=== PATIENT | female | born 1990 | race African-American/Black ===

== ENCOUNTER 2016-08-02 17:13 | Emergency (ER) | payer BC ==
[~2016-08-02] VITALS: Ht 172.7 cm; Wt 61.7 kg
[2016-08-02] MEDS ORDERED: ONDANSETRON PF 4 MG/2 ML VIAL. IV ONE (18:15)
[2016-08-02] MEDS ORDERED: IV NORMAL SALINE 1000ML BAG 1,000 ML IV ONE (18:15)
[2016-08-02 18:16] LABS: BILIRUBIN,URINE NEGATIVE (NEG); GLUCOSE,URINE NEGATIVE (NEG); NITRITE,URINE NEGATIVE (NEG); PROTEIN,URINE NEGATIVE (NEG-TRACE); UROBILINOGEN,URINE 0.2 mg/dL (0.2 mg/dL)
[2016-08-02] MEDS: fentaNYL PF VIAL 100 MCG/2 ML VIAL IV PRN ×2 (18:26→19:10)
[2016-08-02 18:29] LABS: BASO % 1 % (0-3); EOS % 1 % (0-3); HEMATOCRIT 40.4 % (36.0-47.0); HEMOGLOBIN 13.4 g/dL (12.0-15.5); LYMPH # 2.1 x10^3/uL (1.0-4.8); LYMPH % 25 % (24-48); MEAN CORPUSCULAR HEMOGLOBIN 30 pg (25-35); MEAN CORPUSCULAR HGB CONC 33 g/dL (31-37); MEAN CORPUSCULAR VOLUME 90 fL (79-100); MONO % 7 % (0-9); NEUT % 67 % (31-73); PLATELET COUNT 135 x10^3/uL (140-400); RED CELL DISTRIBUTION WIDTH 13.2 % (11.5-14.5); WHITE BLOOD COUNT 8.2 x10^3/uL (4.0-11.0)
[2016-08-02] MEDS ORDERED: IOHEXOL 300 MG/ML 75 ML VIAL IV ONE (18:30)
[2016-08-02] MEDS ORDERED: CONTRAST GIVEN MC PRN (18:30)
[2016-08-02 18:31] LABS: BACTERIA,URINE 0 /HPF (0-FEW); RBC,URINE 0 /HPF (0-2); SQUAMOUS EPITHELIAL CELL,UR MOD /LPF; WBC,URINE 0 /HPF (0-4)
[2016-08-02 18:40] LABS: CALCIUM 9.2 mg/dL (8.5-10.1); CREATININE 0.8 mg/dL (0.6-1.0); GFR 103.3; POTASSIUM 3.4 mmol/L (3.5-5.1)
[2016-08-02 18:46] LABS: ALBUMIN/GLOBULIN RATIO 1.1 (1.0-1.7); TOTAL BILIRUBIN 0.6 mg/dL (0.2-1.0); TOTAL PROTEIN 7.6 g/dL (6.4-8.2)
--- NOTE | 2016-08-02 18:54 | PHYS DOC ---
Past Medical History Past Medical History: Asthma, Other Additional Past Medical Histor: PREECLAMPSIA, ACNE, BACTERIAL VAGINOSIS, RUPTURED OVARIAN CYST Past Surgical History: , Tubal ligation Alcohol Use: Occasionally Drug Use: Marijuana Adult General Chief Complaint Chief Complaint: PELVIC PAIN HPI HPI Patient is a 26 year old female who presents with left pelvic pain for the past 2 days, constant with intermittent fluctuations of intense pain, now radiating to left back. Vomited x2 yesterday, nbnb; and has nausea today. Notes slight constipation, but denies dark or bloody stools. Also notes some vaginal discharge with foul smelling odor that is exactly like prior episodes of bacterial vaginosis. She has no concerns for sexually-transmitted infections at this time. She denies dysuria, hematuria, diarrhea, fever or chills, chest pain, cough, trauma, rash Review of Systems Review of Systems Constitutional: Denies fever or chills [] Eyes: Denies change in visual acuity, redness, or eye pain [] HENT: Denies nasal congestion or sore throat [] Respiratory: Denies cough or shortness of breath [] Cardiovascular: No additional information not addressed in HPI [] GI: Denies bloody stools or diarrhea [] : Denies dysuria or hematuria [] Musculoskeletal: Denies joint pain [] Integument: Denies rash or skin lesions [] Neurologic: Denies headache, focal weakness or sensory changes [] Endocrine: Denies polyuria or polydipsia [] Current Medications Current Medications Current Medications Medications (Trade) Dose Ordered Sig/Allen Start Time Stop Time Status Last Admin Dose Admin Fentanyl Citrate (Fentanyl 2ml Vial) 50 mcg PRN Q15MIN PRN 08/02/16 18:15 08/02/16 19:52 DC 08/02/16 19:10 50 MCG Info (Do NOT chart on this entry -- for MONITORING) 1 each PRN DAILY PRN 08/02/16 18:30 08/02/16 19:52 DC Iohexol (Omnipaque 300 Mg/ml) 75 ml 1X ONCE 08/02/16 18:30 08/02/16 18:31 DC 08/02/16 18:59 75 ML Ondansetron HCl (Zofran) 4 mg 1X ONCE 08/02/16 18:15 08/02/16 18:16 DC 08/02/16 18:26 4 MG Sodium Chloride 1,000 ml @ 1,000 mls/hr 1X ONCE 08/02/16 18:15 08/02/16 19:14 DC 08/02/16 18:25 1,000 MLS/HR Allergies Allergies Allergies Coded Allergies Type Severity Reaction Last Updated Verified aspirin Allergy Intermediate RASH 08/02/16 Yes Physical Exam Physical Exam Constitutional: Well developed, well nourished, mild distress, non-toxic appearance. [] HENT: Normocephalic, atraumatic, bilateral external ears normal, oropharynx moist, no oral exudates, nose normal. [] Eyes: PERRLA, EOMI. [] Neck: Normal range of motion, supple. [] Cardiovascular: Heart rate regular rhythm [] Lungs & Thorax: Bilateral breath sounds clear to auscultation [] Abdomen: Bowel sounds normal, soft, moderate left lower quadrant tenderness, no guarding or rebound. [] Skin: Warm, dry, no erythema, no rash. [] Back: No tenderness, no CVA tenderness. [] Extremities: No tenderness, ROM intact, no edema. [] Neurologic: Alert and oriented X 3, normal motor function, normal sensory function, no focal deficits noted. [] Psychologic: Affect normal, judgement normal, mood normal. [] Current Patient Data Vital Signs Vital Signs Date Time Temp Pulse Resp B/P (MAP) Pulse Ox O2 Delivery O2 Flow Rate FiO2 08/02/16 19:53 70 16 125/79 (94) 97 Room Air 08/02/16 17:30 97.9 97.9 Lab Values Laboratory Tests Test 08/02/16 17:32 08/02/16 18:20 Urine Collection Type Unknown Urine Color Yellow Urine Clarity Clear Urine pH 6.0 Urine Specific [place] 1.015 Urine Protein Negative mg/dL (NEG-TRACE) Urine Glucose (UA) Negative mg/dL (NEG) Urine Ketones (Stick) 40 mg/dL (NEG) Urine Blood Negative (NEG) Urine Nitrite Negative (NEG) Urine Bilirubin Negative (NEG) Urine Urobilinogen Dipstick 0.2 mg/dL (0.2 mg/dL) Urine Leukocyte Esterase Negative (NEG) Urine RBC 0 /HPF (0-2) Urine WBC 0 /HPF (0-4) Urine Squamous Epithelial Cells Mod /LPF Urine Bacteria 0 /HPF (0-FEW) Urine Mucus Mod /LPF White Blood Count 8.2 x10^3/uL (4.0-11.0) Red Blood Count 4.50 x10^6/uL (3.50-5.40) Hemoglobin 13.4 g/dL (12.0-15.5) Hematocrit 40.4 % (36.0-47.0) Mean Corpuscular Volume 90 fL (79-100) Mean Corpuscular Hemoglobin 30 pg (25-35) Mean Corpuscular Hemoglobin Concent 33 g/dL (31-37) Red Cell Distribution Width 13.2 % (11.5-14.5) Platelet Count 135 x10^3/uL (140-400) L Neutrophils (%) (Auto) 67 % (31-73) Lymphocytes (%) (Auto) 25 % (24-48) Monocytes (%) (Auto) 7 % (0-9) Eosinophils (%) (Auto) 1 % (0-3) Basophils (%) (Auto) 1 % (0-3) Neutrophils # (Auto) 5.5 x10^3uL (1.8-7.7) Lymphocytes # (Auto) 2.1 x10^3/uL (1.0-4.8) Monocytes # (Auto) 0.6 x10^3/uL (0.0-1.1) Eosinophils # (Auto) 0.0 x10^3/uL (0.0-0.7) Basophils # (Auto) 0.0 x10^3/uL (0.0-0.2) Sodium Level 144 mmol/L (136-145) Potassium Level 3.4 mmol/L (3.5-5.1) L Chloride Level 105 mmol/L (98-107) Carbon Dioxide Level 27 mmol/L (21-32) Anion Gap 12 (6-14) Blood Urea Nitrogen 8 mg/dL (7-20) Creatinine 0.8 mg/dL (0.6-1.0) Estimated GFR (Cockcroft-Gault) 103.3 BUN/Creatinine Ratio 10 (6-20) Glucose Level 82 mg/dL (70-99) Calcium Level 9.2 mg/dL (8.5-10.1) Total Bilirubin 0.6 mg/dL (0.2-1.0) Aspartate Amino Transferase (AST) 14 U/L (15-37) L Alanine Aminotransferase (ALT) 15 U/L (14-59) Alkaline Phosphatase 56 U/L (46-116) Total Protein 7.6 g/dL (6.4-8.2) Albumin 4.0 g/dL (3.4-5.0) Albumin/Globulin Ratio 1.1 (1.0-1.7) Laboratory Tests 08/02/16 18:20 Laboratory Tests 08/02/16 18:20 Radiology/Procedures Radiology/Procedures Ultrasound pelvis IMPRESSION: 1. No acute sonographic and metallic. 2. Small amount of free pelvic fluid, nonspecific. Electronically signed by: Jet Jackson MD (08/02/2016 7:00 PM) CT abdomen and pelvis with IV contrast IMPRESSION: 1. No acute abnormality of the abdomen or pelvis. No evidence of appendicitis. 2. Trace amount of free pelvic fluid, nonspecific. Electronically signed by: Jet Jackson MD (08/02/2016 7:20 PM) Course & Med Decision Making Course & Med Decision Making Pertinent Labs and Imaging studies reviewed. (See chart for details) Workup is unremarkable. She is feeling better after medications here. Discussed symptomatic care for symptoms. Offered STI testing, but she prefers to follow- up with her resident care technician. Will give prescription for symptoms of BV. Encouraged her to follow-up with her primary care doctor and resident care technician. Return precautions given. She understands and agrees with plan. Lloyd Disclaimer Lloyd Disclaimer This electronic medical record was generated, in whole or in part, using a voice recognition dictation system. Departure Departure Impression: Primary Impression: Left lower quadrant abdominal pain of unknown etiology Additional Impression: Constipation Disposition: 01 HOME, SELF-CARE Condition: STABLE Referrals: UNKNOWN PCP NAME (PCP) Patient Instructions: Abdominal Pain, [id number] Additional Instructions: Take promethazine as needed for nausea. Take Flagyl for possible bacterial vaginosis. Take MiraLAX for constipation. Take Tylenol or ibuprofen as needed for pain. Follow-up with your primary care doctor and resident care technician within one week. Please call for appointment. Return for any concerns. Scripts Metronidazole (FLAGYL) 500 Mg Tablet 1 TAB PO BID, #14 TAB Prov: Fay YA MD 08/02/16 Polyethylene Glycol 3350 (MIRALAX) 119 Gm Powder 1 TBS PO DAILY Y for CONSTIPATION, #255 GM Prov: Fay YA MD 08/02/16 Promethazine Hcl (PROMETHAZINE HCL) 12.5 Mg Tablet 1 TAB PO Q6-8HRS Y for NAUSEA, #10 TAB 0 Refills Prov: Fay YA MD 08/02/16 Problem Qualifiers Additional Impression: Constipation Constipation type: unspecified constipation type Qualified Codes: K59.00 - Constipation, unspecified Fay YA MD Aug 02, 2016 18:54
--- NOTE | 2016-08-02 19:03 | RAD ---
Pelvic ultrasound dated 08/02/2016. No comparison available. CLINICAL INDICATION: Left-sided pelvic pain for 2 days. FINDINGS: Transabdominal pelvic ultrasound was performed. Uterus measures 9.7 x 7.3 x 3.4 cm. No focal uterine mass. Endometrial complex normal in thickness for age measuring 5 mm. Right ovary measures 4.0 x 2.5 x 2.2 cm. Left ovary measures 3.0 x 1.9 x 1.9 cm. Normal color Doppler flow to both ovaries. No apparent adnexal mass. Small amount of free pelvic fluid. IMPRESSION: 1. No acute sonographic and metallic. 2. Small amount of free pelvic fluid, nonspecific. Electronically signed by: Jet Jackson MD (08/02/2016 7:00 PM)
--- NOTE | 2016-08-02 19:23 | RAD ---
CT ABD PELV W/ IV CONTRST ONLY dated 08/02/2016 6:53 PM Indication: Severe left flank pain, pelvic pain started today, history of ruptured ovarian cyst. Left lower quadrant pain. Comparison: Pelvic ultrasound dated same day. Technique: Contiguous axial imaging of the abdomen and pelvis performed after the intravenous administration of 75 cc Omnipaque 300. One or more of the following individualized dose reduction techniques were utilized for this examination: 1. Automated exposure control 2. Adjustment of the mA and/or kV according to patient size 3. Use of iterative reconstruction technique Findings: Limited images of lung bases are clear. Heart size within normal limits. No pleural or pericardial effusion. Liver, spleen, pancreas, adrenal glands, gallbladder and kidneys are unremarkable. No hydronephrosis. Unopacified GI tract normal in caliber and contour. No focal bowel wall thickening. No inflammatory stranding in the mesentery. The appendix is partially visualized and normal in caliber. No ascites or lymphadenopathy. Abdominal aorta normal in caliber. Images of the pelvis show nondistended urinary bladder. Uterus and adnexa are unremarkable. Trace amount of free pelvic fluid. No pelvic lymphadenopathy. Bone windows show no acute findings. IMPRESSION: 1. No acute abnormality of the abdomen or pelvis. No evidence of appendicitis. 2. Trace amount of free pelvic fluid, nonspecific. Electronically signed by: Jet Jackson MD (08/02/2016 7:20 PM)
[2016-08-02] MEDS ORDERED: PROM12.56 PO (19:42)
[2016-08-02] MEDS ORDERED: METR500T PO (19:42)
[2016-08-02] MEDS ORDERED: POLY119P4 PO (19:42)
[2016-08-02 19:53] VITALS: BP 125/79
== END 2016-08-02 19:52 | disposition home or self-care (01) ==
LOC: ER 17:13
DX: R10.32 Left lower quadrant pain (principal); K59.00 Constipation, unspecified; R11.2 Nausea with vomiting, unspecified; R10.2 Pelvic and perineal pain; N89.8 Other specified noninflammatory disorders of vagina; J45.909 Unspecified asthma, uncomplicated; M54.89 Other dorsalgia; Z98.890 Other specified postprocedural states; Z98.51 Tubal ligation status; F12.10 Cannabis abuse, uncomplicated; Z88.6 Allergy status to analgesic agent
CPT/HCPCS: 36415; 74177; 76856; 80053; 81001; 81025; 85027; 96361; 96374; 96375; 96376; 99285; J2405; J3010; J7030; Q9967

== ENCOUNTER 2016-10-05 15:32 | Emergency (ER) | payer SELFPAY ==
[~2016-10-05] VITALS: Ht 172.7 cm; Wt 60.3 kg
[~2016-10-05 15:32] MED LIST: METR500T PO; POLY119P4 PO; PROM12.56 PO
--- NOTE | 2016-10-05 16:49 | PHYS DOC ---
Past Medical History Past Medical History: Asthma, Other Additional Past Medical Histor: PREECLAMPSIA, ACNE, BACTERIAL VAGINOSIS, RUPTURED OVARIAN CYST Past Surgical History: , Tubal ligation Alcohol Use: Occasionally Drug Use: Marijuana Adult General Chief Complaint Chief Complaint: ABDOMINAL PAIN HPI HPI Patient is a 26 year old [female] who presents with [2 days of progressive left lower abd/pelvic pain; no n/v/d/f. some vag discharge/spotting. also, intermittent CP left sided and left shoulder pain. home preg test was indeterminant.hx BTL. ] Review of Systems Review of Systems Constitutional: Denies fever or chills [] Eyes: Denies change in visual acuity, redness, or eye pain [] HENT: Denies nasal congestion or sore throat [] Respiratory: Denies cough or shortness of breath [] Cardiovascular: No additional information not addressed in HPI [] GI: Denies abdominal pain, nausea, vomiting, bloody stools or diarrhea [] : Denies dysuria or hematuria [] Musculoskeletal: Denies back pain or joint pain [] Integument: Denies rash or skin lesions [] Neurologic: Denies headache, focal weakness or sensory changes [] Endocrine: Denies polyuria or polydipsia [ neg except as mentioned in HPI] Current Medications Current Medications Current Medications Medications (Trade) Dose Ordered Sig/Allen Start Time Stop Time Status Last Admin Dose Admin Hydromorphone HCl (Dilaudid) 0.5 mg 1X ONCE 10/05/16 17:00 10/05/16 17:01 DC 10/05/16 16:58 0.5 MG Ondansetron HCl (Zofran) 4 mg 1X ONCE 10/05/16 17:00 10/05/16 17:01 DC 10/05/16 16:57 4 MG Sodium Chloride 1,000 ml @ 1,000 mls/hr Q1H 10/05/16 17:00 10/05/16 17:59 DC 10/05/16 16:59 1,000 MLS/HR Allergies Allergies Allergies Coded Allergies Type Severity Reaction Last Updated Verified aspirin Allergy Intermediate RASH 08/02/16 Yes Physical Exam Physical Exam Constitutional: Well developed, well nourished, no acute distress, non-toxic appearance. [] HENT: Normocephalic, atraumatic, bilateral external ears normal, oropharynx moist, no oral exudates, nose normal. [] Eyes: PERRLA, EOMI, conjunctiva normal, no discharge. [] Neck: Normal range of motion, no tenderness, supple, no stridor. [] Cardiovascular:Heart rate regular rhythm, no murmur [] Lungs & Thorax: Bilateral breath sounds clear to auscultation [] Abdomen: Bowel sounds normal, soft, mild left adenexal tenderness, no masses, no pulsatile masses. [] Skin: Warm, dry, no erythema, no rash. [] Back: No tenderness, no CVA tenderness. [] Extremities: No tenderness, no cyanosis, no clubbing, ROM intact, no edema. [] Neurologic: Alert and oriented X 3, normal motor function, normal sensory function, no focal deficits noted. [] Psychologic: Affect normal, judgement normal, mood normal. [] Current Patient Data Vital Signs Vital Signs Date Time Temp Pulse Resp B/P (MAP) Pulse Ox O2 Delivery O2 Flow Rate FiO2 10/05/16 19:00 52 15 110/63 (79) 99 Room Air 10/05/16 16:01 98.4 98.4 Lab Values Laboratory Tests Test 10/05/16 15:21 10/05/16 16:00 10/05/16 16:12 POC Urine HCG, Qualitative Hcg negative (Negative) Urine Collection Type Unknown Urine Color Yellow Urine Clarity Clear Urine pH 7.0 Urine Specific [place] 1.010 Urine Protein Negative mg/dL (NEG-TRACE) Urine Glucose (UA) Negative mg/dL (NEG) Urine Ketones (Stick) Negative mg/dL (NEG) Urine Blood Negative (NEG) Urine Nitrite Negative (NEG) Urine Bilirubin Negative (NEG) Urine Urobilinogen Dipstick 0.2 mg/dL (0.2 mg/dL) Urine Leukocyte Esterase Negative (NEG) Urine RBC 0 /HPF (0-2) Urine WBC 0 /HPF (0-4) Urine Squamous Epithelial Cells Few /LPF Urine Bacteria 0 /HPF (0-FEW) White Blood Count 7.0 x10^3/uL (4.0-11.0) Red Blood Count 4.64 x10^6/uL (3.50-5.40) Hemoglobin 13.8 g/dL (12.0-15.5) Hematocrit 41.6 % (36.0-47.0) Mean Corpuscular Volume 90 fL (79-100) Mean Corpuscular Hemoglobin 30 pg (25-35) Mean Corpuscular Hemoglobin Concent 33 g/dL (31-37) Red Cell Distribution Width 13.1 % (11.5-14.5) Platelet Count 163 x10^3/uL (140-400) Neutrophils (%) (Auto) 64 % (31-73) Lymphocytes (%) (Auto) 29 % (24-48) Monocytes (%) (Auto) 6 % (0-9) Eosinophils (%) (Auto) 1 % (0-3) Basophils (%) (Auto) 1 % (0-3) Neutrophils # (Auto) 4.5 x10^3uL (1.8-7.7) Lymphocytes # (Auto) 2.0 x10^3/uL (1.0-4.8) Monocytes # (Auto) 0.4 x10^3/uL (0.0-1.1) Eosinophils # (Auto) 0.1 x10^3/uL (0.0-0.7) Basophils # (Auto) 0.0 x10^3/uL (0.0-0.2) D-Dimer ([place]) < 0.27 ug/mlFEU Sodium Level 143 mmol/L (136-145) Potassium Level 3.4 mmol/L (3.5-5.1) L Chloride Level 104 mmol/L (98-107) Carbon Dioxide Level 30 mmol/L (21-32) Anion Gap 9 (6-14) Blood Urea Nitrogen 15 mg/dL (7-20) Creatinine 0.9 mg/dL (0.6-1.0) Estimated GFR (Cockcroft-Gault) 90.2 BUN/Creatinine Ratio 17 (6-20) Glucose Level 81 mg/dL (70-99) Calcium Level 9.4 mg/dL (8.5-10.1) Total Bilirubin 0.3 mg/dL (0.2-1.0) Aspartate Amino Transferase (AST) 17 U/L (15-37) Alanine Aminotransferase (ALT) 16 U/L (14-59) Alkaline Phosphatase 70 U/L (46-116) Total Protein 8.4 g/dL (6.4-8.2) H Albumin 4.2 g/dL (3.4-5.0) Albumin/Globulin Ratio 1.0 (1.0-1.7) Lipase 106 U/L (73-393) Laboratory Tests 10/05/16 16:12 Laboratory Tests 10/05/16 16:12 Microbiology 10/05/16 Wet Prep - Final, Complete EKG EKG [] Radiology/Procedures Radiology/Procedures [] Course & Med Decision Making Course & Med Decision Making Pertinent Labs and Imaging studies reviewed. (See chart for details) Regarding her complaints of chest pain d-dimer negative chest x-ray EKG unremarkable denies suspect serious pathology. Patient was not urine was clean with unremarkable labs. Patient reports a foul odor vaginally consistent with prior bacterial vaginosis. We will treat with Flagyl. GC Chlamydia wet prep were sent and results are pending we will contact patient if positive for STDs. [] Dragon Disclaimer Dragon Disclaimer This electronic medical record was generated, in whole or in part, using a voice recognition dictation system. Departure Departure Referrals: NO PCP (PCP) Scripts Metronidazole (FLAGYL) 500 Mg Tablet 1 TAB PO BID, #14 TAB Prov: MEGHAN SALCIDO MD 10/05/16 MEGHAN SALCIDO MD Oct 05, 2016 16:49
--- NOTE | 2016-10-05 16:50 | EKG ---
[facility] [address] [place] [address] Test Date: 2016-10-05 Test Time: 16:13:54 Pat Name: MAXIMO TRAMMELL Department: Room: Gender: F [employer]: : 1990 Requested By: MEGHAN SALCIDO Order Number: [id number] Reading MD: Srikanth Lawson Measurements Intervals [place] Rate: 61 P: 31 HI: 164 QRS: 51 QRSD: 74 T: 31 QT: 392 QTc: 396 Interpretive Statements SINUS RHYTHM Electronically Signed On 10-10-2016 7:12:53 CDT by Srikanth Lawson
[2016-10-05 16:52] LABS: BASO % 1 % (0-3); EOS % 1 % (0-3); HEMATOCRIT 41.6 % (36.0-47.0); HEMOGLOBIN 13.8 g/dL (12.0-15.5); LYMPH % 29 % (24-48); MEAN CORPUSCULAR HEMOGLOBIN 30 pg (25-35); MEAN CORPUSCULAR HGB CONC 33 g/dL (31-37); MEAN CORPUSCULAR VOLUME 90 fL (79-100); MONO % 6 % (0-9); NEUT % 64 % (31-73); PLATELET COUNT 163 x10^3/uL (140-400); RED BLOOD COUNT 4.64 x10^6/uL (3.50-5.40); RED CELL DISTRIBUTION WIDTH 13.1 % (11.5-14.5)
[2016-10-05 16:54] LABS: BILIRUBIN,URINE NEGATIVE (NEG); GLUCOSE,URINE NEGATIVE (NEG); NITRITE,URINE NEGATIVE (NEG); PROTEIN,URINE NEGATIVE (NEG-TRACE); UROBILINOGEN,URINE 0.2 mg/dL (0.2 mg/dL)
[2016-10-05 16:58] LABS: BACTERIA,URINE 0 /HPF (0-FEW); RBC,URINE 0 /HPF (0-2); SQUAMOUS EPITHELIAL CELL,UR FEW /LPF; WBC,URINE 0 /HPF (0-4)
[2016-10-05] MEDS ORDERED: IV NORMAL SALINE 1000ML BAG 1,000 ML IV SCH (17:00)
[2016-10-05] MEDS ORDERED: ONDANSETRON PF 4 MG/2 ML VIAL. IV ONE (17:00)
[2016-10-05] MEDS ORDERED: HYDROmorphone 2 MG/ML VIAL IV ONE (17:00)
[2016-10-05 17:02] LABS: CALCIUM 9.4 mg/dL (8.5-10.1); CREATININE 0.9 mg/dL (0.6-1.0); GFR 90.2; POTASSIUM 3.4 mmol/L (3.5-5.1)
[2016-10-05 17:08] LABS: ALBUMIN 4.2 g/dL (3.4-5.0); TOTAL BILIRUBIN 0.3 mg/dL (0.2-1.0); TOTAL PROTEIN 8.4 g/dL (6.4-8.2)
--- NOTE | 2016-10-05 17:57 | RAD ---
Pelvic ultrasound History: Left adnexal pain. Comparison: None. Technique: Transabdominal imaging of the pelvis was performed. Findings: The uterus measures 9.8 cm in length and is unremarkable. The endometrium measures 9 mm. Right ovary measures 3.2 x 2.2 x 2.1 cm and is unremarkable. The left ovary measures 4.1 x 2.5 x 3.2 cm and is unremarkable. No adnexal masses are identified. Small amount of physiologic free fluid is present in the pelvis. Both ovaries demonstrate normal vascular flow upon Doppler interrogation and are without evidence of torsion. Impression: 1. Unremarkable pelvic ultrasound. Electronically signed by: Jet Murphy MD (10/05/2016 5:54 PM) [facility]
[2016-10-05 19:00] VITALS: BP 110/63
[2016-10-05] MEDS ORDERED: METR500T PO (19:10)
--- NOTE | 2016-10-06 07:06 | RAD ---
Chest x-ray Indication: Left-sided chest pain for one day. Technique: PA and lateral views of the chest Comparison: None Findings: Heart is normal in size. Lungs are clear. No pneumothorax or pleural effusion. Visualized bony thorax within normal limits. Impression: No acute cardiopulmonary process.
== END 2016-10-05 19:23 | disposition home or self-care (01) ==
LOC: ER 15:32
DX: N76.0 Acute vaginitis (principal); B96.89 Other specified bacterial agents as the cause of diseases classified elsewhere; J45.909 Unspecified asthma, uncomplicated; Z98.51 Tubal ligation status; F12.10 Cannabis abuse, uncomplicated
CPT/HCPCS: 36415; 71020; 76856; 80053; 81001; 81025; 83690; 85025; 85379; 87491; 87591; 93005; 96361; 96374; 96375; 99285; J1170; J2405; J7030; Q0111

== ENCOUNTER 2018-03-21 12:44 | Emergency (ER) | payer SELFPAY ==
[~2018-03-21] VITALS: Ht 172.7 cm; Wt 64.4 kg
[2018-03-21 13:14] VITALS: BP 125/64
[2018-03-21 13:15] LABS: BILIRUBIN,URINE NEGATIVE (NEG); CLARITY,URINE CLEAR; COLOR,URINE YELLOW; NITRITE,URINE NEGATIVE (NEG); PROTEIN,URINE NEGATIVE (NEG-TRACE); UROBILINOGEN,URINE 0.2 mg/dL (0.2 mg/dL)
[2018-03-21 13:21] LABS: SQUAMOUS EPITHELIAL CELL,UR MOD /LPF
[2018-03-21 13:22] LABS: BACTERIA,URINE 0 /HPF (0-FEW); RBC,URINE OCC /HPF (0-2)
--- NOTE | 2018-03-21 13:22 | PHYS DOC ---
Past Medical History Past Medical History: Asthma, Other Additional Past Medical Histor: PREECLAMPSIA, ACNE, BACTERIAL VAGINOSIS, RUPTURED OVARIAN CYST Past Surgical History: , Tubal ligation Alcohol Use: Occasionally Drug Use: Marijuana Adult General Chief Complaint Chief Complaint: ABDOMINAL PAIN HPI HPI Patient is a 27 year old female who presents to the ER with complaints of LLQ abdominal pain and irregular vaginal discharge for the last 2 days. She reports that she has a hx of bacterial vaginosis and states that her symptoms are similar to sx she experiences with BV. Pt states she has taken 5 positive home tests and reports concern of a tubal . Pt states she had BTL 3 years ago. Her LMP was on 02/23/17 and was shorter in duration and heavier in flow than her normal cycles. She describes the pain in her LLQ as cramping and rates it a 6/10, nothing alleviates or exacerbates the pain. Review of Systems Review of Systems Constitutional: Denies fever or chills [] HENT: Denies nasal congestion or sore throat [] Respiratory: Denies cough or shortness of breath [] Cardiovascular: No additional information not addressed in HPI [] GI: Denies nausea, vomiting, bloody stools or diarrhea; see HPI[] : Denies dysuria, increased frequency, or hematuria [] Musculoskeletal: Denies back pain Integument: Denies rash or skin lesions [] Neurologic: Denies headache, focal weakness or sensory changes [] Current Medications Current Medications Current Medications Medications (Trade) Dose Ordered Sig/Allen Start Time Stop Time Status Last Admin Dose Admin Morphine Sulfate (Morphine Sulfate) 4 mg 1X ONCE 03/21/18 14:00 03/21/18 14:01 DC 03/21/18 14:05 4 MG Ondansetron HCl (Zofran) 4 mg 1X ONCE 03/21/18 14:00 03/21/18 14:01 DC 03/21/18 14:05 4 MG Sodium Chloride 1,000 ml @ 1,000 mls/hr 1X ONCE 03/21/18 14:00 03/21/18 14:59 DC 03/21/18 14:05 1,000 MLS/HR Allergies Allergies Allergies Coded Allergies Type Severity Reaction Last Updated Verified aspirin Allergy Intermediate RASH 08/02/16 Yes walnut Allergy Unknown 03/21/18 Yes Physical Exam Physical Exam Constitutional: Well developed, well nourished, no acute distress, non-toxic appearance. [] HENT: Normocephalic, atraumatic, bilateral external ears normal, oropharynx moist, nose normal. [] Eyes: PERRLA, EOMI, conjunctiva normal, no discharge. [] Neck: Normal range of motion, no stridor. [] Pelvic Exam: Tester Operator Helper present Nicole ERT Abdomen: Nontender External Genitalia: Normal Skin Speculum: Normal vaginal mucosa, small amount of brown discharge in vaginal vault, no clots, OS closed, non-friable cervix Bimanual: No adnexal masses, L adnexal tenderness, No CMT Skin: Warm, dry, no erythema, no rash. [] Extremities: No cyanosis, ROM intact, no edema. [] Neurologic: Alert and oriented X 3, normal motor function, normal sensory function, no focal deficits noted. [] Psychologic: Affect normal, judgement normal, mood normal. [] Current Patient Data Vital Signs Vital Signs Date Time Temp Pulse Resp B/P (MAP) Pulse Ox O2 Delivery O2 Flow Rate FiO2 03/21/18 14:05 18 03/21/18 13:14 98.2 86 125/64 (84) 98 Room Air 98.2 Lab Values Laboratory Tests Test 03/21/18 12:55 03/21/18 13:01 03/21/18 13:23 Urine Collection Type Unknown Urine Color Yellow Urine Clarity Clear Urine pH 6.0 Urine Specific [place] 1.025 Urine Protein Negative mg/dL (NEG-TRACE) Urine Glucose (UA) Negative mg/dL (NEG) Urine Ketones (Stick) Negative mg/dL (NEG) Urine Blood Negative (NEG) Urine Nitrite Negative (NEG) Urine Bilirubin Negative (NEG) Urine Urobilinogen Dipstick 0.2 mg/dL (0.2 mg/dL) Urine Leukocyte Esterase Small (NEG) Urine RBC Occ /HPF (0-2) Urine WBC 11-20 /HPF (0-4) Urine Squamous Epithelial Cells Mod /LPF Urine Bacteria 0 /HPF (0-FEW) Urine Mucus Marked /LPF POC Urine HCG, Qualitative Hcg positive (Negative) White Blood Count 6.5 x10^3/uL (4.0-11.0) Red Blood Count 4.30 x10^6/uL (3.50-5.40) Hemoglobin 12.7 g/dL (12.0-15.5) Hematocrit 38.8 % (36.0-47.0) Mean Corpuscular Volume 90 fL (79-100) Mean Corpuscular Hemoglobin 30 pg (25-35) Mean Corpuscular Hemoglobin Concent 33 g/dL (31-37) Red Cell Distribution Width 13.2 % (11.5-14.5) Platelet Count 137 x10^3/uL (140-400) L Neutrophils (%) (Auto) 71 % (31-73) Lymphocytes (%) (Auto) 22 % (24-48) L Monocytes (%) (Auto) 6 % (0-9) Eosinophils (%) (Auto) 1 % (0-3) Basophils (%) (Auto) 1 % (0-3) Neutrophils # (Auto) 4.6 x10^3uL (1.8-7.7) Lymphocytes # (Auto) 1.4 x10^3/uL (1.0-4.8) Monocytes # (Auto) 0.4 x10^3/uL (0.0-1.1) Eosinophils # (Auto) 0.0 x10^3/uL (0.0-0.7) Basophils # (Auto) 0.0 x10^3/uL (0.0-0.2) Maternal Serum HCG Beta Subunit 60 mIU/mL (0-5) H Sodium Level 143 mmol/L (136-145) Potassium Level 3.6 mmol/L (3.5-5.1) Chloride Level 105 mmol/L (98-107) Carbon Dioxide Level 27 mmol/L (21-32) Anion Gap 11 (6-14) Blood Urea Nitrogen 14 mg/dL (7-20) Creatinine 0.7 mg/dL (0.6-1.0) Estimated GFR (Cockcroft-Gault) 119.7 Glucose Level 85 mg/dL (70-99) Calcium Level 9.7 mg/dL (8.5-10.1) Laboratory Tests 03/21/18 13:23 Laboratory Tests 03/21/18 13:23 Microbiology 03/21/18 Wet Prep - Final, Complete EKG EKG [] Radiology/Procedures Radiology/Procedures PROCEDURE: PREG 1ST TRIMESTER Examination: Obstetric ultrasound first trimester HISTORY: History of left pelvic pain COMPARISON: None available FINDINGS: The uterus measures 9.5 x 9.1 x 6.1 cm. The endometrium measures 1.3 cm in thickness. The right ovary measures 3.5 x 1.4 x 1.7 cm. The left ovary measures 3.6 x 2.0 x 2.9 cm. Blood flow identified in the right and left ovaries. No intrauterine gestational sac is identified. IMPRESSION: 1. No evidence of intrauterine gestational sac. Differential includes very early ,or failed first trimester or ectopic . An ectopic gestation is not identified. Recommend close interval follow-up examination and follow-up serial quantitative beta-hCG levels.[] Course & Med Decision Making Course & Med Decision Making Pertinent Labs and Imaging studies reviewed. (See chart for details) Dx: abdominal pain in , bacterial vaginosis DDx: threatened miscarriage, tubal , ovarian cyst 1515- Spoke with Dr. Alan and advised of patient's HCG level and US results. Will provide pt with provider's address and phone number and instruct her to call office first thing tomorrow to schedule a follow up appointment tomorrow afternoon. Prescription written for flagyl. Pelvic rest until cleared by OB. Patient verbalized an understanding of home care, medications, follow-up, and return to ED instructions and was in agreement with the plan of care. [] Dragon Disclaimer Dragon Disclaimer This electronic medical record was generated, in whole or in part, using a voice recognition dictation system. Departure Departure Impression: Primary Impression: Abdominal pain during in first trimester Additional Impression: Bacterial vaginosis Disposition: HOME, SELF-CARE Condition: STABLE Referrals: CORINE HOYOS MD Patient Instructions: Abdominal Pain During , [id number], Bacterial Vaginosis, [id number] Additional Instructions: Call Dr. Hoyos's office first thing tomorrow morning to schedule a follow up appointment tomorrow afternoon. Fill the prescription and use as directed. Pelvic rest until cleared by OB. Return to the ER if symptoms worsen. Scripts Metronidazole (FLAGYL) 500 Mg Tablet 1 TAB PO BID, #14 TAB 0 Refills Prov: ASIM GAGE APRN 03/21/18 Problem Qualifiers ASIM GAGE APRN Mar 21, 2018 13:22
[2018-03-21 13:38] LABS: BASO % 1 % (0-3); EOS % 1 % (0-3); HEMATOCRIT 38.8 % (36.0-47.0); HEMOGLOBIN 12.7 g/dL (12.0-15.5); LYMPH # 1.4 x10^3/uL (1.0-4.8); LYMPH % 22 % (24-48); MEAN CORPUSCULAR HEMOGLOBIN 30 pg (25-35); MEAN CORPUSCULAR HGB CONC 33 g/dL (31-37); MEAN CORPUSCULAR VOLUME 90 fL (79-100); MONO # 0.4 x10^3/uL (0.0-1.1); MONO % 6 % (0-9); NEUT # 4.6 x10^3uL (1.8-7.7); NEUT % 71 % (31-73); PLATELET COUNT 137 x10^3/uL (140-400); RED CELL DISTRIBUTION WIDTH 13.2 % (11.5-14.5); WHITE BLOOD COUNT 6.5 x10^3/uL (4.0-11.0)
[2018-03-21 13:49] LABS: CALCIUM 9.7 mg/dL (8.5-10.1); CREATININE 0.7 mg/dL (0.6-1.0); GFR 119.7; POTASSIUM 3.6 mmol/L (3.5-5.1)
[2018-03-21] MEDS: MORPHINE SULFATE 4 MG/ML VIAL. IV ONE (14:05)
[2018-03-21] MEDS: ONDANSETRON PF 4 MG/2 ML VIAL. IV ONE (14:05)
[2018-03-21] MEDS: IV NORMAL SALINE 1000ML BAG 1,000 ML IV ONE (14:05)
--- NOTE | 2018-03-21 14:55 | RAD ---
Examination: Obstetric ultrasound first trimester HISTORY: History of left pelvic pain COMPARISON: None available FINDINGS: The uterus measures 9.5 x 9.1 x 6.1 cm. The endometrium measures 1.3 cm in thickness. The right ovary measures 3.5 x 1.4 x 1.7 cm. The left ovary measures 3.6 x 2.0 x 2.9 cm. Blood flow identified in the right and left ovaries. No intrauterine gestational sac is identified. IMPRESSION: 1. No evidence of intrauterine gestational sac. Differential includes very early ,or failed first trimester or ectopic . An ectopic gestation is not identified. Recommend close interval follow-up examination and follow-up serial quantitative beta-hCG levels. Electronically signed by: Robert Matamoros MD (03/21/2018 2:50 PM) [id number]
[2018-03-21] MEDS ORDERED: METR500T PO (15:25)
[2018-03-22 12:26] LABS: GC PROBE Negative (Negative)
[2018-03-22] MEDS ORDERED: HYDR-3164 PO (16:49)
== END 2018-03-21 16:27 | disposition home or self-care (01) ==
LOC: ER 12:44
DX: O23.591 Infection of other part of genital tract in pregnancy, first trimester (principal); B96.89 Other specified bacterial agents as the cause of diseases classified elsewhere; R10.32 Left lower quadrant pain; O99.511 Diseases of the respiratory system complicating pregnancy, first trimester; Z98.890 Other specified postprocedural states; Z98.51 Tubal ligation status; Z88.6 Allergy status to analgesic agent; Z91.018 Allergy to other foods; Z3A.01 Less than 8 weeks gestation of pregnancy
CPT/HCPCS: 36415; 76801; 80048; 81001; 81025; 84702; 85025; 86900; 86901; 87086; 87491; 87591; 96374; 96375; 99284; J2270; J2405; J7030; Q0111

== ENCOUNTER 2018-03-22 14:41 | Emergency (ER) | payer SELFPAY ==
[~2018-03-22] VITALS: Ht 172.7 cm; Wt 64.4 kg
[2018-03-22] MEDS ORDERED: HYDR-3164 PO (16:49)
--- NOTE | 2018-03-22 16:50 | PHYS DOC ---
Past Medical History Past Medical History: Asthma, Other Additional Past Medical Histor: PREECLAMPSIA, ACNE, BACTERIAL VAGINOSIS, RUPTURED OVARIAN CYST Past Surgical History: , Tubal ligation Alcohol Use: Occasionally Drug Use: Marijuana Adult General Chief Complaint Chief Complaint: ABDOMINAL PAIN IN [facility] Patient is a 27-year-old female who presents with complaint of worsening pain in her left adnexal region. Patient was seen here yesterday for the same complaint and was found to have positive test. Patient had tubal ligation previously and there was concern that patient may have ectopic . An ultrasound had been performed yesterday and patient had been instructed to follow-up with Dr. Solomon today. Patient was unable to get through to Dr. Solomon's office so was not able to follow up and had decided to return to the emergency room. She denies any nausea or vomiting. She rates the pain in her left adnexal region is moderate. She describes pain as sharp in nature. She denies any vaginal bleeding. Review of Systems Review of Systems Constitutional: Denies fever or chills [] Respiratory: Denies cough or shortness of breath [] Cardiovascular: No additional information not addressed in HPI [] GI: [place] of lower abdominal pain without vomiting or diarrhea [] : Denies dysuria or hematuria [] Musculoskeletal: Denies back pain or joint pain [] Allergies Allergies Allergies Coded Allergies Type Severity Reaction Last Updated Verified aspirin Allergy Intermediate RASH 08/02/16 Yes walnut Allergy Unknown 03/21/18 Yes Physical Exam Physical Exam Constitutional: Well developed, well nourished, no acute distress, non-toxic appearance. [] Neck: Normal range of motion, no tenderness, supple, no stridor. [] Cardiovascular: Regular rate and rhythm [] Lungs & Thorax: Bilateral breath sounds clear to auscultation [] Abdomen: Bowel sounds normal, soft, with tenderness to palpation left adnexal region. [] Skin: Warm, dry, no erythema, no rash. [] Extremities: No tenderness, no cyanosis, no clubbing, ROM intact, no edema. [] Neurologic: Alert and oriented X 3, no focal deficits noted. [] Current Patient Data Vital Signs Vital Signs Date Time Temp Pulse Resp B/P (MAP) Pulse Ox O2 Delivery O2 Flow Rate FiO2 03/22/18 17:09 81 19 128/72 (90) 98 Room Air 03/22/18 14:55 98.6 98.6 Lab Values Laboratory Tests Test 03/22/18 15:20 Maternal Serum HCG Beta Subunit 62 mIU/mL (0-5) H EKG EKG [] Radiology/Procedures Radiology/Procedures [] Course & Med Decision Making Course & Med Decision Making Pertinent Labs and Imaging studies reviewed. (See chart for details) Patient's case was discussed with Dr. Solomon and she indicates that she would like to have patient follow-up in her office on Sunday, requesting patient show up before 9:30 AM. Plan was discussed with patient and and they are in agreement. Dragon Disclaimer Dragon Disclaimer This electronic medical record was generated, in whole or in part, using a voice recognition dictation system. Departure Departure Impression: Primary Impression: Abdominal pain during in first trimester Disposition: 01 HOME, SELF-CARE Condition: STABLE Referrals: NO PCP (PCP) CORINE HOYOS MD Patient Instructions: Abdominal Pain During Additional Instructions: Follow-up with Dr. Solomon on Sunday. She has indicated to present to her office before 9:30 AM to be seen that day. Scripts Hydrocodone/Apap 5-325 (NORCO 5-325 TABLET) 1 Each Tablet 1 EACH PO PRN Q6HRS PRN for PAIN, #15 as needed for pain Prov: DARYL VELÁSQUEZ Jr. DO 03/22/18 DARYL VELÁSQUEZ Jr. DO Mar 22, 2018 16:50
[2018-03-22 17:09] VITALS: BP 128/72
== END 2018-03-22 17:00 | disposition home or self-care (01) ==
LOC: ER 14:41
DX: O99.89 Other specified diseases and conditions complicating pregnancy, childbirth and the puerperium (principal); R10.32 Left lower quadrant pain; O99.511 Diseases of the respiratory system complicating pregnancy, first trimester; J45.909 Unspecified asthma, uncomplicated; Z88.6 Allergy status to analgesic agent; Z91.018 Allergy to other foods; Z98.890 Other specified postprocedural states; Z98.51 Tubal ligation status; Z3A.01 Less than 8 weeks gestation of pregnancy
CPT/HCPCS: 36415; 84702; 99283

== ENCOUNTER 2018-03-23 20:20 | Inpatient (IN) | payer SELFPAY ==
[~2018-03-23] VITALS: Ht 172.7 cm; Wt 64.4 kg
[~2018-03-23 20:20] MED LIST changes: +HYDR-3164 PO; -PROM12.56 PO; +PROM12.58 PO
[2018-03-23 21:12] LABS: BASO % 1 % (0-3); EOS # 0.1 x10^3/uL (0.0-0.7); EOS % 2 % (0-3); HEMATOCRIT 36.6 % (36.0-47.0); HEMOGLOBIN 12.1 g/dL (12.0-15.5); LYMPH # 2.1 x10^3/uL (1.0-4.8); LYMPH % 37 % (24-48); MEAN CORPUSCULAR HEMOGLOBIN 30 pg (25-35); MEAN CORPUSCULAR HGB CONC 33 g/dL (31-37); MEAN CORPUSCULAR VOLUME 90 fL (79-100); MONO # 0.4 x10^3/uL (0.0-1.1); MONO % 8 % (0-9); NEUT # 3.1 x10^3uL (1.8-7.7); NEUT % 53 % (31-73); PLATELET COUNT 138 x10^3/uL (140-400); RED BLOOD COUNT 4.07 x10^6/uL (3.50-5.40); RED CELL DISTRIBUTION WIDTH 12.9 % (11.5-14.5); WHITE BLOOD COUNT 5.8 x10^3/uL (4.0-11.0)
[2018-03-23 21:23] LABS: CALCIUM 8.9 mg/dL (8.5-10.1); CREATININE 0.7 mg/dL (0.6-1.0); GFR 119.7; POTASSIUM 3.6 mmol/L (3.5-5.1)
[2018-03-23 21:30] LABS: ALBUMIN 3.4 g/dL (3.4-5.0); ALBUMIN/GLOBULIN RATIO 0.9 (1.0-1.7); TOTAL BILIRUBIN 0.4 mg/dL (0.2-1.0)
[2018-03-23] MEDS ORDERED: MORPHINE SULFATE 10 MG/ML VIAL. IV ONE (21:30)
[2018-03-23 21:50] LABS: BILIRUBIN,URINE NEGATIVE (NEG); CLARITY,URINE CLEAR; COLOR,URINE YELLOW; NITRITE,URINE NEGATIVE (NEG); PROTEIN,URINE NEGATIVE (NEG-TRACE); UROBILINOGEN,URINE 0.2 mg/dL (0.2 mg/dL)
[2018-03-23 21:58] LABS: BARBITURATES NEG (NEG); BENZODIAZEPINES NEG (NEG); CANNABINOIDS POS (NEG); COCAINE NEG (NEG); METHADONE NEG (NEG); OPIATES POS (NEG); PHENCYCLIDINE NEG (NEG)
[2018-03-23 22:01] LABS: AMPHETAMINE/METHAMPHETAMINE NEG (NEG)
[2018-03-23 22:14] LABS: WBC,URINE TNTC /HPF (0-4)
[2018-03-23 22:15] LABS: BACTERIA,URINE MODERATE /HPF (0-FEW); SQUAMOUS EPITHELIAL CELL,UR MOD /LPF
--- NOTE | 2018-03-23 23:46 | RAD ---
OB ultrasound less than 14 weeks and transvaginal OB ultrasound HISTORY: Abdominal pain and Sonographic examination of the was performed by transabdominal and endovaginal technique. Multiple static images were obtained. OB ultrasound less than 14 weeks transabdominal: The endometrium measures 7 mm in thickness. The ovaries are not seen by transabdominal technique. OB ultrasound transvaginal: There is nabothian cysts in the cervix. The uterus appears homogeneous. The right ovary appears normal with normal blood flow measures 1.2 x 3.1 x 5.5 centers. Left ovary appears normal with normal blood flow measures 2.0 x 3.0 x 1.8 cm. There is no free fluid. IMPRESSION: No sonographic evidence of . An early or blighted ovum or miscarriage is possible. Recommend correlation with serial quantitative beta-hCG. If the continues a short-term follow-up ultrasound must be performed when the patient is at 6 weeks in order to document an intrauterine and thereby exclude possible ectopic . Electronically signed by: Navarro Phan III, MD (03/23/2018 11:42 PM) [facility]
[2018-03-24] MEDS ORDERED: ONDANSETRON PF 4 MG/2 ML VIAL. IV ONE (01:15)
--- NOTE | 2018-03-24 01:27 | PHYS DOC ---
Past Medical History Past Medical History: Asthma Additional Past Medical Histor: PREECLAMPSIA, ACNE, BACTERIAL VAGINOSIS, RUPTURED OVARIAN CYST Past Surgical History: No Surgical History Alcohol Use: Occasionally Drug Use: None Adult General Chief Complaint Chief Complaint: PELVIC PAIN HPI HPI Patient is a 27 year old female with history of asthma who presents to the ED today complaining of a 7 out of 10 left-sided abdominal pain that has been going on for 3 days. Patient states she was seen in the ED 3 days ago as well as yesterday for the same pain. She states she was informed she could have a tubal . She states her tubes are tied and burned she states she has continued to have the pain despite being discharged on hydrocodone. Patient describes the pain as a bloating sensation to her abdomen. She states the pain radiates into the left ribs. Patient's also complaining of nausea but no vomiting. Denies any vaginal bleeding. Review of Systems Review of Systems Constitutional: Denies fever or chills [] Eyes: Denies change in visual acuity, redness, or eye pain [] HENT: Denies nasal congestion or sore throat [] Respiratory: Denies cough or shortness of breath [] Cardiovascular: No additional information not addressed in HPI [] GI: Reports left-sided abdominal pain with nausea, denies vomiting, bloody stools or diarrhea [] : Denies dysuria or hematuria [] Musculoskeletal: Denies back pain or joint pain [] Integument: Denies rash or skin lesions [] Neurologic: Denies headache, focal weakness or sensory changes [] All other systems were reviewed and found to be within normal limits, except as documented in this note. Current Medications Current Medications Current Medications Medications (Trade) Dose Ordered Sig/[facility] Start Time Stop Time Status Last Admin Dose Admin Morphine Sulfate (Morphine Sulfate) 5 mg 1X ONCE 03/23/18 21:30 03/23/18 21:31 DC 03/23/18 21:38 5 MG Ondansetron HCl (Zofran) 4 mg 1X ONCE 03/24/18 01:15 03/24/18 01:16 DC 03/24/18 01:15 4 MG Allergies Allergies Allergies Coded Allergies Type Severity Reaction Last Updated Verified aspirin Allergy Intermediate RASH 08/02/16 Yes walnut Allergy Unknown 03/21/18 Yes Physical Exam Physical Exam Constitutional: Well developed, well nourished, no acute distress, non-toxic appearance. [] HENT: Normocephalic, atraumatic, bilateral external ears normal, oropharynx moist, no oral exudates, nose normal. [] Eyes: PERRLA, EOMI, conjunctiva normal, no discharge. [] Neck: Normal range of motion, no tenderness, supple, no stridor. [] Cardiovascular:Heart rate regular rhythm, no murmur [] Lungs & Thorax: Bilateral breath sounds clear to auscultation [] Abdomen: Bowel sounds normal, soft, no tenderness, no masses, no pulsatile masses. [] Pelvic exam External pelvic appears normal, cervix is closed, no CMT, no bleeding noted on pelvic exam, left adnexal tenderness on exam. Skin: Warm, dry, no erythema, no rash. [] Back: No tenderness, no CVA tenderness. [] Extremities: No tenderness, no cyanosis, no clubbing, ROM intact, no edema. [] Neurologic: Alert and oriented X 3, normal motor function, normal sensory function, no focal deficits noted. [] Psychologic: Affect normal, judgement normal, mood normal. [] Current Patient Data Vital Signs Vital Signs Date Time Temp Pulse Resp B/P (MAP) Pulse Ox O2 Delivery O2 Flow Rate FiO2 03/23/18 22:39 62 18 97/60 (72) 97 Room Air 03/23/18 20:42 97.7 97.7 Lab Values Laboratory Tests Test 03/23/18 20:50 03/23/18 21:30 White Blood Count 5.8 x10^3/uL (4.0-11.0) Red Blood Count 4.07 x10^6/uL (3.50-5.40) Hemoglobin 12.1 g/dL (12.0-15.5) Hematocrit 36.6 % (36.0-47.0) Mean Corpuscular Volume 90 fL (79-100) Mean Corpuscular Hemoglobin 30 pg (25-35) Mean Corpuscular Hemoglobin Concent 33 g/dL (31-37) Red Cell Distribution Width 12.9 % (11.5-14.5) Platelet Count 138 x10^3/uL (140-400) L Neutrophils (%) (Auto) 53 % (31-73) Lymphocytes (%) (Auto) 37 % (24-48) Monocytes (%) (Auto) 8 % (0-9) Eosinophils (%) (Auto) 2 % (0-3) Basophils (%) (Auto) 1 % (0-3) Neutrophils # (Auto) 3.1 x10^3uL (1.8-7.7) Lymphocytes # (Auto) 2.1 x10^3/uL (1.0-4.8) Monocytes # (Auto) 0.4 x10^3/uL (0.0-1.1) Eosinophils # (Auto) 0.1 x10^3/uL (0.0-0.7) Basophils # (Auto) 0.0 x10^3/uL (0.0-0.2) Maternal Serum HCG Beta Subunit 80 mIU/mL (0-5) H Sodium Level 138 mmol/L (136-145) Potassium Level 3.6 mmol/L (3.5-5.1) Chloride Level 103 mmol/L (98-107) Carbon Dioxide Level 31 mmol/L (21-32) Anion Gap 4 (6-14) L Blood Urea Nitrogen 16 mg/dL (7-20) Creatinine 0.7 mg/dL (0.6-1.0) Estimated GFR (Cockcroft-Gault) 119.7 BUN/Creatinine Ratio 23 (6-20) H Glucose Level 113 mg/dL (70-99) H Calcium Level 8.9 mg/dL (8.5-10.1) Total Bilirubin 0.4 mg/dL (0.2-1.0) Aspartate Amino Transferase (AST) 11 U/L (15-37) L Alanine Aminotransferase (ALT) 14 U/L (14-59) Alkaline Phosphatase 49 U/L (46-116) Total Protein 7.0 g/dL (6.4-8.2) Albumin 3.4 g/dL (3.4-5.0) Albumin/Globulin Ratio 0.9 (1.0-1.7) L Ethyl Alcohol Level < 10 mg/dL (0-10) Urine Collection Type Unknown Urine Color Yellow Urine Clarity Clear Urine pH 6.0 Urine Specific [place] 1.025 Urine Protein Negative mg/dL (NEG-TRACE) Urine Glucose (UA) Negative mg/dL (NEG) Urine Ketones (Stick) Negative mg/dL (NEG) Urine Blood Negative (NEG) Urine Nitrite Negative (NEG) Urine Bilirubin Negative (NEG) Urine Urobilinogen Dipstick 0.2 mg/dL (0.2 mg/dL) Urine Leukocyte Esterase Large (NEG) Urine RBC 6-10 /HPF (0-2) Urine WBC Tntc /HPF (0-4) Urine Squamous Epithelial Cells Mod /LPF Urine Bacteria Moderate /HPF (0-FEW) Urine Mucus Marked /LPF Urine Opiates Screen Pos (NEG) Urine Methadone Screen Neg (NEG) Urine Barbiturates Neg (NEG) Urine Phencyclidine Screen Neg (NEG) Urine Amphetamine/Methamphetamine Neg (NEG) Urine Benzodiazepines Screen Neg (NEG) Urine Cocaine Screen Neg (NEG) Urine Cannabinoids Screen Pos (NEG) Urine Ethyl Alcohol Neg (NEG) Laboratory Tests 03/23/18 20:50 Laboratory Tests 03/23/18 20:50 EKG EKG [] Radiology/Procedures Radiology/Procedures []PROCEDURE: OB <14 WKS W/TV OB ultrasound less than 14 weeks and transvaginal OB ultrasound HISTORY: Abdominal pain and Sonographic examination of the was performed by transabdominal and endovaginal technique. Multiple static images were obtained. OB ultrasound less than 14 weeks transabdominal: The endometrium measures 7 mm in thickness. The ovaries are not seen by transabdominal technique. OB ultrasound transvaginal: There is nabothian cysts in the cervix. The uterus appears homogeneous. The right ovary appears normal with normal blood flow measures 1.2 x 3.1 x 5.5 centers. Left ovary appears normal with normal blood flow measures 2.0 x 3.0 x 1.8 cm. There is no free fluid. IMPRESSION: No sonographic evidence of . An early or blighted ovum or miscarriage is possible. Recommend correlation with serial quantitative beta-hCG. If the continues a short-term follow-up ultrasound must be performed when the patient is at 6 weeks in order to document an intrauterine and thereby exclude possible ectopic . Electronically signed by: Tray Phan III, MD (03/23/2018 11:42 PM) [facility] DICTATED and SIGNED BY: TRAY PHAN III, MD DATE: 03/23/18 4519 Course & Med Decision Making Course & Med Decision Making Pertinent Labs and Imaging studies reviewed. (See chart for details) This is a 27-year-old female patient presenting to the ED today with left-sided abdominal pain that has been going on for 3 days. Also complaining of nausea. Patient was seen in the ED 3 days ago, had a positive urine hCG and beta hCG was 60. She had an ultrasound done which could not find an IUP she was also in the ED yesterday, beta-hCG with 62, no IUP was found on ultrasound. Off note her tubes are tied. Patient is back in the ED today with the same pain but states the pain is worse. Beta hCG is 80. CBC with a normal WBC, hemoglobin and hematocrit are normal. CMP would not acute findings. Urine analysis is noted for UTI. Patient was given pain medicine in the ED. Spoke to Dr. Ko. She requested we discharge patient and have her follow-up in the clinic. Patient was given the information. She is sitting on the bed, she states the pain is severe, she states she feels she is very bloated. She is requesting to be admitted. She was also starting to dry heave. Spoke to Dr. Ko again. Patient was admitted. Dragon Disclaimer Dragon Disclaimer This electronic medical record was generated, in whole or in part, using a voice recognition dictation system. Departure Departure Impression: Primary Impression: Intractable abdominal pain Additional Impression: UTI (urinary tract infection) Disposition: ADMITTED INPATIENT Condition: STABLE Referrals: NO PCP (PCP) Problem Qualifiers Additional Impression: UTI (urinary tract infection) Urinary tract infection type: site unspecified Hematuria presence: without hematuria Qualified Codes: N39.0 - Urinary tract infection, site not specified FLAVIO GREEN APRN Mar 24, 2018 01:26
[2018-03-24] MEDS ORDERED: IV NORMAL SALINE 1000ML BAG 1,000 ML IV ONE (01:30)
[2018-03-24] MEDS ORDERED: MORPHINE SULFATE 4 MG/ML VIAL. IV PRN (01:30)
[2018-03-24] MEDS ORDERED: ONDANSETRON PF 4 MG/2 ML VIAL. IV PRN (01:30)
[2018-03-24] MEDS ORDERED: cefTRIAXone IV Push 1 GM VIAL. IVP ONE (02:00)
[2018-03-24 02:30] VITALS: BP 99/48
[2018-03-24] MEDS: IV DEXTROSE 5%-LACT RINGERS 1,000 ML IV SCH ×3 (03:37→19:49)
--- NOTE | 2018-03-24 04:33 | NUR ---
Received report from Rosibel in ED around 0230'yannick. Patient arrived upstairs around 0245
[2018-03-24] MEDS ORDERED: AMPICILLIN SODIUM 2 GM in IV NORMAL SALINE 100ML 100 ML IV ONE (06:00)
[2018-03-24] MEDS: oxyCODONE/APAP 5/325 1 TAB TABLET PO PRN ×3 (06:14→15:35)
[2018-03-24 06:21] VITALS: BP 122/66
--- NOTE | 2018-03-24 10:30 | NUR ---
Dr Solomon called floor will see pt tomorrow. Cont. Yessica
--- NOTE | 2018-03-24 11:04 | NUR ---
pt up to void and passed 2 cm clot in toilet. States in 7 days late on period. Instructed will cont to monitor
[2018-03-24 13:04] VITALS: BP 118/64
--- NOTE | 2018-03-24 16:12 | PDOC ---
GENERAL General: 27yrs old female one Lmp) C/O Pelvic Pain for 3 days. Started her Period today. UCG is 80 Sonogram shows no Uterine . VITAL SIGNS Vital Signs: Vital Signs Date Time Temp Pulse Resp B/P (MAP) Pulse Ox O2 Delivery O2 Flow Rate FiO2 03/24/18 13:04 98.0 68 18 118/64 (82) 100 Room Air 98.0 I & O I & O Intake and Output 03/24/18 07:01 Intake Total 300 ml Balance 300 ml Intake Oral 300 ml # Voids 1 ALLERGIES Allergies: Allergies Coded Allergies Type Severity Reaction Last Updated Verified aspirin Allergy Intermediate RASH 08/02/16 Yes walnut Allergy Unknown 03/21/18 Yes MEDS Medications: Current Medications Medications (Trade) Dose Ordered Sig/Allen Start Time Stop Time Status Last Admin Dose Admin Ampicillin Sodium 2 gm/Sodium Chloride 100 ml @ 200 mls/hr 1X ONCE 03/24/18 06:00 03/24/18 07:42 DC 03/24/18 06:17 200 MLS/HR Ceftriaxone Sodium (Rocephin) 1 gm ONCE ONCE 03/24/18 02:00 03/24/18 07:42 DC 03/24/18 02:08 1 GM Dextrose/Lactated Ringer's 1,000 ml @ 125 mls/hr Q8H 03/24/18 03:00 03/24/18 10:33 125 MLS/HR Morphine Sulfate (Morphine Sulfate) 4 mg PRN Q2HR PRN 03/24/18 01:30 03/25/18 01:29 Ondansetron HCl (Zofran) 4 mg PRN Q8HRS PRN 03/24/18 01:30 03/25/18 01:29 Oxycodone/ Acetaminophen (Percocet 5/325) 1-2 tablets PRN Q4HRS PRN 03/24/18 03:00 03/24/18 15:35 2 TAB Sodium Chloride 1,000 ml @ 125 mls/hr 1X ONCE 03/24/18 01:30 03/24/18 07:42 DC LAB Lab: Laboratory Tests Test 03/23/18 20:50 03/23/18 21:30 03/24/18 05:00 White Blood Count 5.8 x10^3/uL (4.0-11.0) Red Blood Count 4.07 x10^6/uL (3.50-5.40) Hemoglobin 12.1 g/dL (12.0-15.5) Hematocrit 36.6 % (36.0-47.0) Mean Corpuscular Volume 90 fL (79-100) Mean Corpuscular Hemoglobin 30 pg (25-35) Mean Corpuscular Hemoglobin Concent 33 g/dL (31-37) Red Cell Distribution Width 12.9 % (11.5-14.5) Platelet Count 138 x10^3/uL (140-400) Neutrophils (%) (Auto) 53 % (31-73) Lymphocytes (%) (Auto) 37 % (24-48) Monocytes (%) (Auto) 8 % (0-9) Eosinophils (%) (Auto) 2 % (0-3) Basophils (%) (Auto) 1 % (0-3) Neutrophils # (Auto) 3.1 x10^3uL (1.8-7.7) Lymphocytes # (Auto) 2.1 x10^3/uL (1.0-4.8) Monocytes # (Auto) 0.4 x10^3/uL (0.0-1.1) Eosinophils # (Auto) 0.1 x10^3/uL (0.0-0.7) Basophils # (Auto) 0.0 x10^3/uL (0.0-0.2) Maternal Serum HCG Beta Subunit 80 mIU/mL (0-5) 81 mIU/mL (0-5) Sodium Level 138 mmol/L (136-145) Potassium Level 3.6 mmol/L (3.5-5.1) Chloride Level 103 mmol/L (98-107) Carbon Dioxide Level 31 mmol/L (21-32) Anion Gap 4 (6-14) Blood Urea Nitrogen 16 mg/dL (7-20) Creatinine 0.7 mg/dL (0.6-1.0) Estimated GFR (Cockcroft-Gault) 119.7 BUN/Creatinine Ratio 23 (6-20) Glucose Level 113 mg/dL (70-99) Calcium Level 8.9 mg/dL (8.5-10.1) Total Bilirubin 0.4 mg/dL (0.2-1.0) Aspartate Amino Transf (AST/SGOT) 11 U/L (15-37) Alanine Aminotransferase (ALT/SGPT) 14 U/L (14-59) Alkaline Phosphatase 49 U/L (46-116) Total Protein 7.0 g/dL (6.4-8.2) Albumin 3.4 g/dL (3.4-5.0) Albumin/Globulin Ratio 0.9 (1.0-1.7) Ethyl Alcohol Level < 10 mg/dL (0-10) Urine Collection Type Unknown Urine Color Yellow Urine Clarity Clear Urine pH 6.0 Urine Specific [place] 1.025 Urine Protein Negative mg/dL (NEG-TRACE) Urine Glucose (UA) Negative mg/dL (NEG) Urine Ketones (Stick) Negative mg/dL (NEG) Urine Blood Negative (NEG) Urine Nitrite Negative (NEG) Urine Bilirubin Negative (NEG) Urine Urobilinogen Dipstick 0.2 mg/dL (0.2 mg/dL) Urine Leukocyte Esterase Large (NEG) Urine RBC 6-10 /HPF (0-2) Urine WBC Tntc /HPF (0-4) Urine Squamous Epithelial Cells Mod /LPF Urine Bacteria Moderate /HPF (0-FEW) Urine Mucus Marked /LPF Urine Opiates Screen Pos (NEG) Urine Methadone Screen Neg (NEG) Urine Barbiturates Neg (NEG) Urine Phencyclidine Screen Neg (NEG) Urine Amphetamine/Methamphetamine Neg (NEG) Urine Benzodiazepines Screen Neg (NEG) Urine Cocaine Screen Neg (NEG) Urine Cannabinoids Screen Pos (NEG) Urine Ethyl Alcohol Neg (NEG) ASSESSMENT & PLAN A&P Abdomen soft .No Fever. No Nausea or Vomiting Pelvic Exam shows uterine Bleeding No Clots. Has some Discomfort at LLQ. Will get Rpt UCG and CT scan tomorrow. Pt receiving Antibiotics for UTI. Positive for [place]. CORINE HOYOS MD Mar 24, 2018 16:12
[2018-03-24 18:40] VITALS: BP 98/63
[2018-03-24 19:30] VITALS: BP 106/61
[2018-03-24] MEDS: cefTRIAXone IV Push 1 GM VIAL. IVP SCH (21:00)
--- NOTE | 2018-03-24 22:20 | NUR ---
Patient called me into the room to show me a blood clot that she had passed in the bathroom, the clot appeared to be about the size of small lemon. Pt also stated that her bleeding was heavy as well. Pt reported on the previous shift to me that she started her February period on 02/23/18. Thus would place her anticipated next start date for the March cycle to be 03/23/18. This places her cycle on time.
[2018-03-25] VITALS (10 sets, daily range): BP systolic 107–129; BP diastolic 61–84
[2018-03-25] MEDS: ONDANSETRON PF 4 MG/2 ML VIAL. IV PRN ×3 (02:41→20:32)
[2018-03-25] MEDS: oxyCODONE/APAP 5/325 1 TAB TABLET PO PRN ×3 (02:45→20:34)
[2018-03-25] MEDS: IV DEXTROSE 5%-LACT RINGERS 1,000 ML IV SCH ×3 (03:26→19:00)
[2018-03-25 06:20] LABS: BASO % 0 % (0-3); EOS # 0.1 x10^3/uL (0.0-0.7); EOS % 1 % (0-3); HEMATOCRIT 31.3 % (36.0-47.0); HEMOGLOBIN 10.5 g/dL (12.0-15.5); LYMPH # 1.4 x10^3/uL (1.0-4.8); LYMPH % 27 % (24-48); MEAN CORPUSCULAR HEMOGLOBIN 30 pg (25-35); MEAN CORPUSCULAR HGB CONC 34 g/dL (31-37); MEAN CORPUSCULAR VOLUME 90 fL (79-100); MONO # 0.4 x10^3/uL (0.0-1.1); MONO % 8 % (0-9); NEUT # 3.3 x10^3uL (1.8-7.7); NEUT % 64 % (31-73); PLATELET COUNT 104 x10^3/uL (140-400); RED BLOOD COUNT 3.49 x10^6/uL (3.50-5.40); RED CELL DISTRIBUTION WIDTH 12.8 % (11.5-14.5); WHITE BLOOD COUNT 5.2 x10^3/uL (4.0-11.0)
[2018-03-25 06:41] LABS: ALBUMIN 2.7 g/dL (3.4-5.0); ALBUMIN/GLOBULIN RATIO 0.9 (1.0-1.7); ALK PHOS 39 U/L (46-116); ALT (SGPT) 9 U/L (14-59); ANION GAP 6 (6-14); BLOOD UREA NITROGEN 6 mg/dL (7-20); BUN/CREATININE RATIO 9 (6-20); CALCIUM 8.1 mg/dL (8.5-10.1); CARBON DIOXIDE 29 mmol/L (21-32); CHLORIDE 106 mmol/L (98-107); CREATININE 0.7 mg/dL (0.6-1.0); GFR 119.7; GLUCOSE 101 mg/dL (70-99); POTASSIUM 3.8 mmol/L (3.5-5.1); SODIUM 141 mmol/L (136-145); TOTAL BILIRUBIN 0.4 mg/dL (0.2-1.0); TOTAL PROTEIN 5.6 g/dL (6.4-8.2)
[2018-03-25 06:42] LABS: AST (SGOT) < 5 U/L (15-37)
[2018-03-25] MEDS ORDERED: ONDANSETRON PF 4 MG/2 ML VIAL. ONE (14:28)
[2018-03-25] MEDS ORDERED: DEXAMETHASONE SOD PHOS 20 MG/5 ML VIAL. ONE (14:28)
[2018-03-25] MEDS ORDERED: SEVOFLURANE 61 TO 120 MINUTES. IH ONE ×2 (14:28→15:54)
[2018-03-25] MEDS ORDERED: PROPOFOL 20 ML IV ONE (14:28)
[2018-03-25] MEDS ORDERED: SUCCINYLCHOLINE 200 MG/10 ML VIAL. ONE (14:28)
[2018-03-25] MEDS ORDERED: ROCURONIUM 50 MG/5 ML VIAL. ONE (14:28)
[2018-03-25] MEDS ORDERED: GLYCOPYRROLATE 1 MG/5 ML VIAL. ONE (14:28)
[2018-03-25] MEDS ORDERED: NEOSTIGMINE 10 MG/10 ML VIAL. ONE (14:28)
[2018-03-25] MEDS ORDERED: KETOROLAC 30 MG/ML INJ FOR OR. INJ ONE ×2 (14:28)
[2018-03-25] MEDS ORDERED: fentaNYL PF VIAL 100 MCG/2 ML VIAL ONE (14:28)
[2018-03-25] MEDS ORDERED: LIDOCAINE 2% PF 5 ML VIAL. ONE (14:28)
[2018-03-25] MEDS ORDERED: HYDROmorphone 2 MG/ML VIAL IV PRN (14:30)
[2018-03-25] MEDS ORDERED: LIDOCAINE 1% PF 2 ML VIAL. ID PRN (14:30)
[2018-03-25] MEDS ORDERED: fentaNYL PF VIAL 100 MCG/2 ML VIAL IV PRN (14:30)
[2018-03-25] MEDS ORDERED: ONDANSETRON PF 4 MG/2 ML VIAL. IV PRN (14:30)
--- NOTE | 2018-03-25 14:34 | HP ---
ADMIT DATE: HISTORY OF PRESENT ILLNESS: This patient is a 27-year-old female who is a 4, para 3, previous section. She comes into the Emergency Room because of pelvic pain and also has UCG rating of 60. She was seen in the ER and admitted because of abdominopelvic pain, which is not relieved with just codeine tablets. Her last menstrual period has been 02/24/2018. She has already had a tubal ligation, at the present time complaining of more pain in the left side of the pelvic area. There is also history of marijuana use at this time. PAST SURGICAL HISTORY: As mentioned above, . REVIEW OF SYSTEMS: Essentially negative. PHYSICAL EXAMINATION: VITAL SIGNS: Reveals the vital signs being stable. GENERAL: She does have acute pain in the left side of the pelvic area. ABDOMEN: Feels soft, tenderness on the left side. PELVIC: Shows external genitalia being normal and she does have minimal amount of vaginal bleeding. On bimanual exam, uterus feels normal size. No adnexal mass on the right side, but she does have tenderness in the left adnexal area with a possible mass. EXTREMITIES: No edema of feet. IMPRESSION: Pelvic pain, rule out ectopic . PLAN: Laparotomy, possible partial salpingectomy. The details of the surgery, risks, complications have been explained to the patient and she is willing for the surgery at the present time. CORINE HOYOS MD DR: TASHI/holger JOB#: [id number] / [id number]
--- NOTE | 2018-03-25 14:40 | NUR ---
Pt. to preop holding in bed accompanied by transportation and significant other. Report given to LENNY Contreras.
[2018-03-25] MEDS: IV RINGERS,LACTATED 1000ML 1,000 ML IV SCH ×2 (14:54→17:49)
[2018-03-25] MEDS ORDERED: ceFAZolin SODIUM 1 GM VIAL ONE (15:20)
--- NOTE | 2018-03-25 16:11 | PDOC ---
GENERAL General: Patient scheduled for Laparotomy and Possible Partial Salpingectomy. VITAL SIGNS Vital Signs: Vital Signs Date Time Temp Pulse Resp B/P (MAP) Pulse Ox O2 Delivery O2 Flow Rate FiO2 03/25/18 15:12 98.3 60 20 124/80 100 Room Air 98.3 I & O I & O Intake and Output 03/25/18 07:01 Intake Total 1060 ml Balance 1060 ml Intake Oral 1060 ml Tube Feeding 0 ml # Voids 6 ALLERGIES Allergies: Allergies Coded Allergies Type Severity Reaction Last Updated Verified aspirin Allergy Intermediate RASH 03/25/18 Yes walnut Allergy Unknown 03/25/18 Yes MEDS Medications: Current Medications Medications (Trade) Dose Ordered Sig/Allen Start Time Stop Time Status Last Admin Dose Admin Ampicillin Sodium 2 gm/Sodium Chloride 100 ml @ 200 mls/hr 1X ONCE 03/24/18 06:00 03/24/18 07:42 DC 03/24/18 06:17 200 MLS/HR Cefazolin Sodium (Ancef) 1 gm STK-MED ONCE 03/25/18 15:20 03/25/18 15:22 DC Ceftriaxone Sodium (Rocephin) 1 gm ONCE ONCE 03/24/18 02:00 03/24/18 07:42 DC 03/24/18 02:08 1 GM Dexamethasone Sodium Phosphate (Decadron) 20 mg STK-MED ONCE 03/25/18 14:28 03/25/18 14:31 DC Dextrose/Lactated Ringer's 1,000 ml @ 125 mls/hr Q8H 03/24/18 03:00 03/25/18 11:10 125 MLS/HR Fentanyl Citrate (Fentanyl 2ml Vial) 100 mcg STK-MED ONCE 03/25/18 14:28 03/25/18 14:30 DC Glycopyrrolate (Robinul) 1 mg STK-MED ONCE 03/25/18 14:28 03/25/18 14:30 DC Hydromorphone HCl (Dilaudid) 0.5 mg PRN Q10MIN PRN 03/25/18 14:30 03/25/18 20:00 Ketorolac Tromethamine (Toradol For Or Only) 30 mg STK-MED ONCE 03/25/18 14:28 03/25/18 14:31 DC Lidocaine HCl (Lidocaine Pf 2% Vial) 5 ml STK-MED ONCE 03/25/18 14:28 03/25/18 14:30 DC Lidocaine HCl (Xylocaine-Mpf 1% 2ml Vial) 2 ml 1X PRN PRN 03/25/18 14:30 03/25/18 20:00 Morphine Sulfate (Morphine Sulfate) 1 mg PRN Q10MIN PRN 03/25/18 14:30 03/26/18 14:29 Neostigmine Methylsulfate (Bloxiverz) 10 mg STK-MED ONCE 03/25/18 14:28 03/25/18 14:30 DC Ondansetron HCl (Zofran) 4 mg STK-MED ONCE 03/25/18 14:28 03/25/18 14:31 DC Oxycodone/ Acetaminophen (Percocet 5/325) 1-2 tablets PRN Q4HRS PRN 03/24/18 03:00 03/25/18 09:51 1 TAB Prochlorperazine Edisylate (Compazine) 5 mg PACU PRN PRN 03/25/18 14:30 03/25/18 20:00 Propofol 20 ml @ As Directed STK-MED ONCE 03/25/18 14:28 03/25/18 14:30 DC Ringer's Solution 1,000 ml @ 30 mls/hr Q24H 03/25/18 14:22 03/26/18 02:21 03/25/18 14:54 30 MLS/HR Rocuronium [place] (Zemuron) 50 mg STK-MED ONCE 03/25/18 14:28 03/25/18 14:30 DC Sevoflurane (Ultane) 60 ml STK-MED ONCE 03/25/18 15:54 03/25/18 15:56 DC Sodium Chloride 1,000 ml @ 125 mls/hr 1X ONCE 03/24/18 01:30 03/24/18 07:42 DC Succinylcholine Chloride (Anectine) 200 mg STK-MED ONCE 03/25/18 14:28 03/25/18 14:30 DC LAB Lab: Laboratory Tests Test 03/25/18 05:56 White Blood Count 5.2 x10^3/uL (4.0-11.0) Red Blood Count 3.49 x10^6/uL (3.50-5.40) Hemoglobin 10.5 g/dL (12.0-15.5) Hematocrit 31.3 % (36.0-47.0) Mean Corpuscular Volume 90 fL (79-100) Mean Corpuscular Hemoglobin 30 pg (25-35) Mean Corpuscular Hemoglobin Concent 34 g/dL (31-37) Red Cell Distribution Width 12.8 % (11.5-14.5) Platelet Count 104 x10^3/uL (140-400) Neutrophils (%) (Auto) 64 % (31-73) Lymphocytes (%) (Auto) 27 % (24-48) Monocytes (%) (Auto) 8 % (0-9) Eosinophils (%) (Auto) 1 % (0-3) Basophils (%) (Auto) 0 % (0-3) Neutrophils # (Auto) 3.3 x10^3uL (1.8-7.7) Lymphocytes # (Auto) 1.4 x10^3/uL (1.0-4.8) Monocytes # (Auto) 0.4 x10^3/uL (0.0-1.1) Eosinophils # (Auto) 0.1 x10^3/uL (0.0-0.7) Basophils # (Auto) 0.0 x10^3/uL (0.0-0.2) Maternal Serum HCG Beta Subunit 72 mIU/mL (0-5) Sodium Level 141 mmol/L (136-145) Potassium Level 3.8 mmol/L (3.5-5.1) Chloride Level 106 mmol/L (98-107) Carbon Dioxide Level 29 mmol/L (21-32) Anion Gap 6 (6-14) Blood Urea Nitrogen 6 mg/dL (7-20) Creatinine 0.7 mg/dL (0.6-1.0) Estimated GFR (Cockcroft-Gault) 119.7 BUN/Creatinine Ratio 9 (6-20) Glucose Level 101 mg/dL (70-99) Calcium Level 8.1 mg/dL (8.5-10.1) Total Bilirubin 0.4 mg/dL (0.2-1.0) Aspartate Amino Transf (AST/SGOT) < 5 U/L (15-37) Alanine Aminotransferase (ALT/SGPT) 9 U/L (14-59) Alkaline Phosphatase 39 U/L (46-116) Total Protein 5.6 g/dL (6.4-8.2) Albumin 2.7 g/dL (3.4-5.0) Albumin/Globulin Ratio 0.9 (1.0-1.7) ASSESSMENT & PLAN A&P Under GA Laparotomy Left side Partial Salpingectomy done. EBL 50cc. CORINE HOYOS MD Mar 25, 2018 16:11
[2018-03-25] MEDS: PROCHLORPERAZINE 10 MG/2 ML VIAL. IV PRN ×2 (16:31→16:53)
[2018-03-25] MEDS: fentaNYL PF VIAL 100 MCG/2 ML VIAL IV PRN ×2 (16:32→16:43)
--- NOTE | 2018-03-25 16:44 | OP ---
DATE OF SURGERY: PREOPERATIVE DIAGNOSES: Acute pelvic pain, possible ectopic . POSTOPERATIVE DIAGNOSES: Acute pelvic pain, possible ectopic . OPERATION PERFORMED: Laparotomy, left-sided partial salpingectomy. OPERATIVE PROCEDURE: The patient was taken to the operating room. Under general anesthesia, she was placed in dorsal lithotomy position. Singh catheter introduced in the bladder for continuous bladder drainage. Lower abdomen was prepped and draped in the usual manner and a Pfannenstiel incision was made in the midline and horizontally and abdomen opened in layers. Visualization of pelvic structures revealed a slightly enlarged uterus and the right tube and ovary appears normal and the left side tube was dilated and the left ovary was enlarged. There was no active bleeding inside. The dilated left fallopian tube was excised with Lucille clamps and the mesosalpinx was doubly ligated with 0 chromic catgut sutures and portion of the fallopian tube removed and subjected for pathological examination and after this, there was no active bleeding and the right tube was entirely normal and abdomen closed in layers using continuous 0 chromic catgut sutures for the peritoneum, the muscle, the fascia; 3-0 plain continuous sutures applied for subcutaneous tissue; 3-0 Vicryl subcutaneous sutures were placed. A pressure dressing was given. The patient was sent to the recovery room in good condition. No complications encountered at time of the procedure. ESTIMATED BLOOD LOSS: 50 mL. CORINE HOYOS MD DR: TASHI/holger JOB#: [id number] / [id number]
[2018-03-25] MEDS: MORPHINE SULFATE 4 MG/ML VIAL. IV PRN ×2 (16:54→17:11)
[2018-03-25] MEDS ORDERED: MORPHINE SULFATE 4 MG/ML VIAL. IV ONE (18:15)
[2018-03-25] MEDS ORDERED: DOCUSATE SODIUM 100 MG CAPSULE. PO PRN (19:45)
[2018-03-25] MEDS: cefTRIAXone IV Push 1 GM VIAL. IVP SCH (20:33)
--- NOTE | 2018-03-26 03:06 | NUR ---
Took over care 03/25/18 at 2130. [facility] down, paper charted until 03/26/18 at 0230.
[2018-03-26] MEDS: oxyCODONE/APAP 5/325 1 TAB TABLET PO PRN ×2 (05:01→08:15)
[2018-03-26 05:21] VITALS: BP 110/65
--- NOTE | 2018-03-26 09:43 | PDOC ---
GENERAL General: Abdomen soft. Incision healing ok. VITAL SIGNS Vital Signs: Vital Signs Date Time Temp Pulse Resp B/P (MAP) Pulse Ox O2 Delivery O2 Flow Rate FiO2 03/26/18 08:15 20 Room Air 03/26/18 05:21 97.9 63 110/65 (80) 99 97.9 03/25/18 16:43 10.0 I & O I & O Intake and Output 03/26/18 07:00 Intake Total 1000 ml Output Total 575 ml Balance 425 ml IV Total 1000 ml Tube Feeding 0 ml Output Urine Total 525 ml Estimated Blood Loss 50 ml ALLERGIES Allergies: Allergies Coded Allergies Type Severity Reaction Last Updated Verified aspirin Allergy Intermediate RASH 03/25/18 Yes walnut Allergy Unknown 03/25/18 Yes MEDS Medications: Current Medications Medications (Trade) Dose Ordered Sig/Allen Start Time Stop Time Status Last Admin Dose Admin Ampicillin Sodium 2 gm/Sodium Chloride 100 ml @ 200 mls/hr 1X ONCE 03/24/18 06:00 03/24/18 07:42 DC 03/24/18 06:17 200 MLS/HR Cefazolin Sodium (Ancef) 1 gm STK-MED ONCE 03/25/18 15:20 03/25/18 15:22 DC Ceftriaxone Sodium (Rocephin) 1 gm ONCE ONCE 03/24/18 02:00 03/24/18 07:42 DC 03/24/18 02:08 1 GM Dexamethasone Sodium Phosphate (Decadron) 20 mg STK-MED ONCE 03/25/18 14:28 03/25/18 14:31 DC Dextrose/Lactated Ringer's 1,000 ml @ 125 mls/hr Q8H 03/24/18 03:00 03/25/18 11:10 125 MLS/HR Docusate Sodium (Colace) 100 mg PRN DAILY PRN 03/25/18 19:45 03/26/18 08:15 100 MG Fentanyl Citrate (Fentanyl 2ml Vial) 100 mcg STK-MED ONCE 03/25/18 14:28 03/25/18 14:30 DC Glycopyrrolate (Robinul) 1 mg STK-MED ONCE 03/25/18 14:28 03/25/18 14:30 DC Hydromorphone HCl (Dilaudid) 0.5 mg PRN Q10MIN PRN 03/25/18 14:30 03/25/18 19:43 DC Ketorolac Tromethamine (Toradol For Or Only) 30 mg STK-MED ONCE 03/25/18 14:28 03/25/18 14:31 DC Lidocaine HCl (Lidocaine Pf 2% Vial) 5 ml STK-MED ONCE 03/25/18 14:28 03/25/18 14:30 DC Lidocaine HCl (Xylocaine-Mpf 1% 2ml Vial) 2 ml 1X PRN PRN 03/25/18 14:30 03/25/18 20:00 DC Morphine Sulfate (Morphine Sulfate) 2 mg 1X ONCE 03/25/18 18:15 03/25/18 18:16 DC 03/25/18 18:33 2 MG Neostigmine Methylsulfate (Bloxiverz) 10 mg STK-MED ONCE 03/25/18 14:28 03/25/18 14:30 DC Ondansetron HCl (Zofran) 4 mg STK-MED ONCE 03/25/18 14:28 03/25/18 14:31 DC Oxycodone/ Acetaminophen (Percocet 5/325) 1-2 tablets PRN Q4HRS PRN 03/24/18 03:00 03/26/18 08:15 1 TAB Prochlorperazine Edisylate (Compazine) 5 mg PACU PRN PRN 03/25/18 14:30 03/25/18 19:43 DC 03/25/18 16:53 5 MG Propofol 20 ml @ As Directed STK-MED ONCE 03/25/18 14:28 03/25/18 14:30 DC Ringer's Solution 1,000 ml @ 30 mls/hr Q24H 03/25/18 14:22 03/26/18 02:21 DC 03/25/18 17:49 30 MLS/HR Rocuronium [place] (Zemuron) 50 mg STK-MED ONCE 03/25/18 14:28 03/25/18 14:30 DC Sevoflurane (Ultane) 60 ml STK-MED ONCE 03/25/18 15:54 03/25/18 15:56 DC Sodium Chloride 1,000 ml @ 125 mls/hr 1X ONCE 03/24/18 01:30 03/24/18 07:42 DC Succinylcholine Chloride (Anectine) 200 mg STK-MED ONCE 03/25/18 14:28 03/25/18 14:30 DC ASSESSMENT & PLAN A&P Patient can go home today. Will see her in office in 2 weeks. Explained to patient about surgical findings. CORINE HOYOS MD Mar 26, 2018 09:43
[2018-03-26] MEDS ORDERED: IBUPROFEN 400 MG TABLET. PO PRN (10:00)
[2018-03-26] MEDS ORDERED: MAGNESIUM HYDROXIDE 2,400 MG/30 ML ORAL.SUSP. PO PRN (10:00)
[2018-03-26] MEDS ORDERED: oxyCODONE/APAP 5/325 1 TAB TABLET PO PRN ×2 (10:15)
[2018-03-26 10:26] VITALS: BP 112/73
--- NOTE | 2018-03-26 11:50 | NUR ---
Discharge Discharge instructions given to patient and at this time. No questions or concerns. To follow up in [address] Solomon. Patient left in wheelchair with all belongings.
--- NOTE | 2018-03-28 16:07 | PATHOLOGY ---
[facility] Accession Number: [id number] . 01 Material submitted: . PORTION OF LEFT FALLOPIAN TUBE . 01 Clinical history: . Pelvic pain, possible ectopic . 02 Diagnosis: Segment of fallopian tube, left partial salpingectomy: - Focal endometriosis of fallopian tube. - Mild acute salpingitis. (JPM:walt; 03/28/2018) QMS/03/28/2018 . 02 Comment: There is no evidence of an ectopic tubal . . 02 Electronically signed: . Florentin Colorado MD, Pathologist NPI- [id number] . 01 Gross description: . Received in formalin labeled "DillonIlya powerae, portion of left fallopian tube," is a curved segment of non-fimbriated fallopian tube measuring 2.4 cm in length by 0.5 cm in diameter. The serosal surface is wrinkled and pale mao-ordoñez in appearance. Serial sectioning reveals a pinpoint lumen, as well as a cystic structure measuring 0.3 cm on cut surface that is filled with brown fluid. The cystic structure does not appear to involve the lumen. No further lesions or nodules are identified grossly. The specimen is submitted representatively in cassette A1, to include the entire aforementioned cystic structure. (DAC; 03/27/2018) XDC/XDC . 02 Pathologist provided ICD-10: N80.9, N70.91 . 02 CPT . 731951 Specimen Comment: A courtesy copy of this report has been sent to Specimen Comment: [phone]. Specimen Comment: Report sent to / DR GREEN Specimen Comment: A duplicate report has been generated due to demographic updates. Performed at: [address] [place] [address] [address], [place], [place] [id number] MD Solomon Turner MD Phone: [phone] Performed at: [address] [id number] MD Florentin Colorado MD Phone: [phone]
--- NOTE | 2018-04-18 11:47 | DS ---
DATE OF DISCHARGE: 03/26/2018 SUBJECTIVE: The patient is a 27-year-old female who is a 3, para 3, came into the Emergency Room with pelvic pain. Last menstrual period 02/24/2018 and the pelvic pain was severe on the left side and she was given pain pills, had a CT scan, admitted to the hospital because of possible ectopic as a test was positive, UCG of 72 and later on she did have also a pelvic sonogram and subsequently admitted for surgery. OBJECTIVE: VITAL SIGNS: Stable. HEAD, EYES, EARS, NOSE AND THROAT: Within normal limits. LUNGS: Clear. HEART: Sounds regular sinus rhythm. ABDOMEN: Soft, tenderness in the pelvic area, more so to the left side, also has vaginal bleeding, spotting. HOSPITAL COURSE: She did undergo a laparotomy and partial salpingectomy on the left side and postoperatively she did well. DIAGNOSES: with pelvic pain, early ectopic on the left side fallopian tube, unruptured. OPERATION PERFORMED: Laparotomy, partial salpingectomy. PLAN: She will be followed in the office in 2 weeks for further postoperative care and treatment. CORINE HOYOS MD DR: TASHI/holger JOB#: [id number] / [id number]
== END 2018-03-26 11:57 | disposition home or self-care (01) | DRG 818 ==
LOC: ER 20:20 → 3 NORTH 03-24 01:22
PROVIDERS: ADMIT Obstetrics & Gynecology; ATTEND Obstetrics & Gynecology
PROC: 0UB60ZZ Excision of Left Fallopian Tube, Open Approach (ICD-10-PCS; principal; 2018-03-24)
DX: O00.102 Left tubal pregnancy without intrauterine pregnancy (principal); O23.41 Unspecified infection of urinary tract in pregnancy, first trimester; N83.8 Other noninflammatory disorders of ovary, fallopian tube and broad ligament; R10.2 Pelvic and perineal pain; J45.909 Unspecified asthma, uncomplicated; F12.90 Cannabis use, unspecified, uncomplicated; Z98.51 Tubal ligation status; Z88.8 Allergy status to other drugs, medicaments and biological substances; Z91.010 Allergy to peanuts
CPT/HCPCS: 36415; 76801; 76817; 80053; 80307; 81001; 84702; 85025; 87086; 88305; 96374; 96375; A7015; G0480; J0290; J0330; J0690; J0696; J0780; J1100; J1885; J2001; J2270; J2405; J2704; J2710; J3010; J3490; J7120; 99285-25; A4461; G0378

== ENCOUNTER 2019-04-17 13:22 | Emergency (ER) | payer SELFPAY ==
[~2019-04-17] VITALS: Ht 172.7 cm; Wt 65.0 kg
--- NOTE | 2019-04-17 15:29 | PHYS DOC ---
Past Medical History Past Medical History: Asthma Additional Past Medical Histor: PREECLAMPSIA, ACNE, BACTERIAL VAGINOSIS, RUPTURED OVARIAN CYST (ANGELES HENDRICKS APRN) Past Surgical History: No Surgical History (ANGELES HENDRICKS APRN) Smoking Status: Current Every Day Smoker Alcohol Use: Occasionally Drug Use: None (ANGELES HENDRICKS APRN) Adult General Chief Complaint Chief Complaint: VAGINAL BLEEDING HPI HPI Patient is a 28 year old female who presents with nausea, vomiting, diarrhea, feeling hot and cold, back pain that started on Sunday. The patient states that she thought she had food poisoning but then the diarrhea lessened and she started having abdominal cramping and bloating on Sunday and has not had a bowel movement since that time. The patient states that she feels 3 months . The patient states that she is also been feeling shortness of breath and is having vaginal bleeding since Sunday. The patient had an ectopic on March 25 even though she has had a tubal ligation. The patient is had 2- tests over the last several days at home. She has recently started back on control. (ANGELES HENDRICKS APRN) Review of Systems Review of Systems Constitutional: Reports hot/cold chills [] Eyes: Denies change in visual acuity, redness, or eye pain [] HENT: Denies nasal congestion or sore throat [] Respiratory: Denies cough or shortness of breath [] Cardiovascular: No additional information not addressed in HPI [] GI: Reports abdominal cramping and bloating, nausea, vomiting, and diarrhea [] :Reports vaginal bleeding. Musculoskeletal: Reports back pain Integument: Denies rash or skin lesions [] Neurologic: Denies headache, focal weakness or sensory changes [] Endocrine: Denies polyuria or polydipsia [] Complete systems were reviewed and found to be within normal limits, except as documented in this note. (ANGELES HENDRICKS APRN) Current Medications Current Medications Current Medications Medications (Trade) Dose Ordered Sig/Allen Start Time Stop Time Status Last Admin Dose Admin Info (CONTRAST GIVEN -- Rx MONITORING) 1 each PRN DAILY PRN 04/17/19 18:45 04/17/19 19:41 DC Iohexol (Omnipaque 350 Mg/ml) 90 ml 1X ONCE 04/17/19 18:45 04/17/19 18:46 DC 04/17/19 18:47 90 ML Morphine Sulfate (Morphine Sulfate) 2 mg 1X ONCE 04/17/19 17:00 04/17/19 17:01 DC 04/17/19 16:58 2 MG Ondansetron HCl (Zofran) 4 mg 1X ONCE 04/17/19 15:30 04/17/19 15:31 DC 04/17/19 16:58 4 MG Sodium Chloride 1,000 ml @ 1,000 mls/hr 1X ONCE 04/17/19 15:30 04/17/19 16:29 DC 04/17/19 16:58 1,000 MLS/HR (YULISA ROWLEY MD) Allergies Allergies Allergies Coded Allergies Type Severity Reaction Last Updated Verified aspirin Allergy Intermediate RASH 03/25/18 Yes walnut Allergy Unknown 03/25/18 Yes (YULISA ROWLEY MD) Physical Exam Physical Exam Constitutional: Well developed, well nourished, no acute distress, non-toxic appearance. [] HENT: Normocephalic, atraumatic, bilateral external ears normal, oropharynx moist, no oral exudates, nose normal. [] Eyes: PERRLA, EOMI, conjunctiva normal, no discharge. [] Neck: Normal range of motion, no tenderness, supple, no stridor. [] Cardiovascular:Heart rate regular rhythm, no murmur [] Lungs & Thorax: Bilateral breath sounds clear to auscultation [] Abdomen: Bowel sounds hypoactive, soft, diffuse tenderness, no masses, no pulsatile masses. [] Skin: Warm, dry, no erythema, no rash. [] Neurologic: Alert and oriented X 3, normal motor function, normal sensory function, no focal deficits noted. [] Psychologic: Affect normal, judgement normal, mood normal. [] (ANGELES HENDRICKS APRN) Current Patient Data Vital Signs Vital Signs Date Time Temp Pulse Resp B/P (MAP) Pulse Ox O2 Delivery O2 Flow Rate FiO2 04/17/19 19:05 67 18 115/67 (83) 99 Room Air 04/17/19 15:50 98.1 98.1 (YULISA ROWLEY MD) Lab Values Laboratory Tests Test 04/17/19 13:40 04/17/19 13:49 04/17/19 16:48 3/5/20 18:10 Urine Collection Type Unknown Urine Color Yellow Urine Clarity Clear Urine pH 6.5 Urine Specific [place] <=1.005 Urine Protein Negative mg/dL (NEG-TRACE) Urine Glucose (UA) Negative mg/dL (NEG) Urine Ketones (Stick) Negative mg/dL (NEG) Urine Blood Negative (NEG) Urine Nitrite Negative (NEG) Urine Bilirubin Negative (NEG) Urine Urobilinogen Dipstick 0.2 mg/dL (0.2 mg/dL) Urine Leukocyte Esterase Negative (NEG) Urine RBC 0 /HPF (0-2) Urine WBC 0 /HPF (0-4) Urine Squamous Epithelial Cells Occ /LPF Urine Bacteria 0 /HPF (0-FEW) POC Urine HCG, Qualitative Hcg negative (Negative) White Blood Count 6.8 x10^3/uL (4.0-11.0) Red Blood Count 4.46 x10^6/uL (3.50-5.40) Hemoglobin 13.1 g/dL (12.0-15.5) Hematocrit 39.4 % (36.0-47.0) Mean Corpuscular Volume 88 fL (79-100) Mean Corpuscular Hemoglobin 29 pg (25-35) Mean Corpuscular Hemoglobin Concent 33 g/dL (31-37) Red Cell Distribution Width 12.5 % (11.5-14.5) Platelet Count 173 x10^3/uL (140-400) Neutrophils (%) (Auto) 66 % (31-73) Lymphocytes (%) (Auto) 27 % (24-48) Monocytes (%) (Auto) 5 % (0-9) Eosinophils (%) (Auto) 1 % (0-3) Basophils (%) (Auto) 1 % (0-3) Neutrophils # (Auto) 4.5 x10^3/uL (1.8-7.7) Lymphocytes # (Auto) 1.9 x10^3/uL (1.0-4.8) Monocytes # (Auto) 0.4 x10^3/uL (0.0-1.1) Eosinophils # (Auto) 0.0 x10^3/uL (0.0-0.7) Basophils # (Auto) 0.0 x10^3/uL (0.0-0.2) Prothrombin Time 12.9 SEC (11.7-14.0) Prothrombin Time INR 1.0 (0.8-1.1) Activated Partial Thromboplast Time 30 SEC (24-38) D-Dimer ([place]) 1.24 ug/mlFEU (0.00-0.50) H Maternal Serum HCG Beta Subunit < 1 mIU/mL (0-5) Sodium Level 143 mmol/L (136-145) Potassium Level 3.6 mmol/L (3.5-5.1) Chloride Level 106 mmol/L (98-107) Carbon Dioxide Level 29 mmol/L (21-32) Anion Gap 8 (6-14) Blood Urea Nitrogen 10 mg/dL (7-20) Creatinine 0.9 mg/dL (0.6-1.0) Estimated GFR (Cockcroft-Gault) 89.0 BUN/Creatinine Ratio 11 (6-20) Glucose Level 64 mg/dL (70-99) L Calcium Level 9.3 mg/dL (8.5-10.1) Magnesium Level 2.2 mg/dL (1.8-2.4) Total Bilirubin 0.3 mg/dL (0.2-1.0) Aspartate Amino Transferase (AST) 14 U/L (15-37) L Alanine Aminotransferase (ALT) 13 U/L (14-59) L Alkaline Phosphatase 49 U/L (46-116) Total Protein 7.9 g/dL (6.4-8.2) Albumin 3.6 g/dL (3.4-5.0) Albumin/Globulin Ratio 0.8 (1.0-1.7) L Influenza Type A Antigen Negative (NEGATIVE) Influenza Type B Antigen Negative (NEGATIVE) Laboratory Tests 04/17/19 16:48 Laboratory Tests 04/17/19 16:48 (YULISA ROWLEY MD) EKG EKG [] (ANGELES HENDRICKS APRN) Radiology/Procedures Radiology/Procedures [][facility] [address] [place] [address] IMAGING REPORT Signed PATIENT: MAXIMO TRAMMELL ACCOUNT: [id number] : 1990 LOCATION: ER AGE: 28 SEX: F EXAM STATUS: REG ER ORD. PHYSICIAN: ANGELES HENDRICKS APRN REASON: elevated d-dimer, sob, tachycardia, abdominal pain, bloating PROCEDURE: CT ANGIO CHEST W ABD PEL W/ Exam: CT of chest, abdomen and pelvis with contrast INDICATION: Elevated d-dimer, shortness of breath, tachycardia and abdominal pain TECHNIQUE: Sequential axial images through the chest, abdomen and pelvis obtained following the administration of 90 mL of Omni 350 IV contrast. Sagittal and coronal reformatted images were reconstructed from the axial data and reviewed. Comparisons: None FINDINGS: Visual is portions of the thyroid are unremarkable. No enlarged mediastinal lymph nodes are identified. Heart size is normal. No pericardial effusion. Thoracic aorta has a normal course and caliber. Pulmonary artery is not enlarged. No pulmonary embolus identified within the main, lobar or segmental pulmonary arteries. Airways are patent. No consolidation or pneumothorax. No suspicious lung nodules are identified. No pleural effusion or thickening. Liver, spleen, pancreas, gallbladder and adrenals are unremarkable. Kidneys demonstrate symmetric enhancement. No perinephric patient or hydronephrosis. No renal or ureteral ureteral calculi are identified. Bladder is decompressed not well evaluated. Uterus is not enlarged. No abnormal adnexal mass. Large and small bowel are unremarkable. Appendix is normal. No free intra-abdominal air or fluid. No obstruction. Abdominal aorta has a normal course and caliber. Abdominal vasculature is patent. No enlarged abdominal lymph nodes are identified. No suspicious osseous lesions or acute fractures. IMPRESSION: 1. No pulmonary embolus identified within the main, lobar or segmental. 2. No acute process identified in the abdomen or pelvis. Exposure: One or more of the following in the visualized dose reduction techniques were utilized for this examination: 1. Automated exposure control 2. Adjustment of the MA and/or KV according to patient size 3. Use of iterative of reconstructive technique Electronically signed by: Claire Rangel MD (04/17/2019 7:10 PM) [id number] DICTATED and SIGNED BY: CLAIRE RANGEL MD DATE: 04/17/191909 (ANGELES HENDRICKS APRN) Course & Med Decision Making Course & Med Decision Making Pertinent Labs and Imaging studies reviewed. (See chart for details) Will get test, labs, and give supportive care. Labs and test are unremarkable for acute changes. Will prescribe nausea medication and discharge home. (ANGELES HENDRICKS APRN) Course & Med Decision Making I was not involved in the care of this patient after 1800 on 04/17/2019. (YULISA ROWLEY MD) Dragon Disclaimer Dragon Disclaimer This electronic medical record was generated, in whole or in part, using a voice recognition dictation system. (ANGELES HENDRICKS APRN) Departure Departure Impression: Primary Impression: Acute viral syndrome Disposition: HOME, SELF-CARE Admitting Physician: HIMS (ANGELES HENDRICKS APRN) Condition: STABLE Referrals: NO PCP (PCP) Patient Instructions: Viral Syndrome Additional Instructions: Thank you for visiting [facility]. We appreciate you trusting us with your care. If any additional problems come up don't hesitate to return to visit us. Please follow up with your primary care provider so they can plan additional care if needed and know about the problem that you had. If symptoms worsen come back to the Emergency Department. Any concerning symptoms that start such as chest pain, shortness of air, weakness or numbness on one side of the body, running high fevers or any other concerning symptoms return to the ER. Please fill your medications at any pharmacy and follow the prescription instruc tions. Scripts Ondansetron (ONDANSETRON ODT) 4 Mg Tab.rapdis 1 TAB PO PRN Q6-8HRS PRN for NAUSEA, #20 TAB Prov: ANGELES HENDRICKS APRN 04/17/19 ANGELES HENDRICKS APRN Apr 17, 2019 15:29 YULISA ROWLEY MD Apr 18, 2019 06:27
[2019-04-17] MEDS ORDERED: ONDANSETRON PF 4 MG/2 ML VIAL. IV ONE (15:30)
[2019-04-17] MEDS ORDERED: IV NORMAL SALINE 1000ML BAG 1,000 ML IV ONE (15:30)
[2019-04-17 15:42] LABS: BILIRUBIN,URINE NEGATIVE (NEG); CLARITY,URINE CLEAR; COLOR,URINE YELLOW; NITRITE,URINE NEGATIVE (NEG); PH,URINE 6.5; PROTEIN,URINE NEGATIVE (NEG-TRACE); UROBILINOGEN,URINE 0.2 mg/dL (0.2 mg/dL)
[2019-04-17 15:50] LABS: BACTERIA,URINE 0 /HPF (0-FEW); RBC,URINE 0 /HPF (0-2); SQUAMOUS EPITHELIAL CELL,UR OCC /LPF; WBC,URINE 0 /HPF (0-4)
[2019-04-17] MEDS ORDERED: MORPHINE SULFATE 2 MG/ML VIAL. IV ONE (17:00)
[2019-04-17 17:02] LABS: BASO % 1 % (0-3); EOS % 1 % (0-3); HEMATOCRIT 39.4 % (36.0-47.0); HEMOGLOBIN 13.1 g/dL (12.0-15.5); LYMPH # 1.9 x10^3/uL (1.0-4.8); LYMPH % 27 % (24-48); MEAN CORPUSCULAR HEMOGLOBIN 29 pg (25-35); MEAN CORPUSCULAR HGB CONC 33 g/dL (31-37); MEAN CORPUSCULAR VOLUME 88 fL (79-100); MONO # 0.4 x10^3/uL (0.0-1.1); MONO % 5 % (0-9); NEUT # 4.5 x10^3/uL (1.8-7.7); NEUT % 66 % (31-73); PLATELET COUNT 173 x10^3/uL (140-400); RED BLOOD COUNT 4.46 x10^6/uL (3.50-5.40); RED CELL DISTRIBUTION WIDTH 12.5 % (11.5-14.5); WHITE BLOOD COUNT 6.8 x10^3/uL (4.0-11.0)
[2019-04-17 17:22] LABS: CALCIUM 9.3 mg/dL (8.5-10.1); CREATININE 0.9 mg/dL (0.6-1.0); POTASSIUM 3.6 mmol/L (3.5-5.1)
[2019-04-17 17:29] LABS: ALBUMIN 3.6 g/dL (3.4-5.0); ALBUMIN/GLOBULIN RATIO 0.8 (1.0-1.7); MAGNESIUM 2.2 mg/dL (1.8-2.4); TOTAL BILIRUBIN 0.3 mg/dL (0.2-1.0); TOTAL PROTEIN 7.9 g/dL (6.4-8.2)
[2019-04-17 18:40] LABS: INFLUENZA A PATIENT NEGATIVE (NEGATIVE); INFLUENZA B PATIENT NEGATIVE (NEGATIVE)
[2019-04-17 18:43] LABS: PROTHROMBIN TIME PATIENT 12.9 SEC (11.7-14.0)
[2019-04-17] MEDS ORDERED: IOHEXOL 350 MG/ML 100 ML VIAL. IV ONE (18:45)
[2019-04-17] MEDS ORDERED: CONTRAST GIVEN. MC PRN (18:45)
[2019-04-17 19:05] VITALS: BP 115/67
--- NOTE | 2019-04-17 19:14 | RAD ---
Exam: CT of chest, abdomen and pelvis with contrast INDICATION: Elevated d-dimer, shortness of breath, tachycardia and abdominal pain TECHNIQUE: Sequential axial images through the chest, abdomen and pelvis obtained following the administration of 90 mL of Omni 350 IV contrast. Sagittal and coronal reformatted images were reconstructed from the axial data and reviewed. Comparisons: None FINDINGS: Visual is portions of the thyroid are unremarkable. No enlarged mediastinal lymph nodes are identified. Heart size is normal. No pericardial effusion. Thoracic aorta has a normal course and caliber. Pulmonary artery is not enlarged. No pulmonary embolus identified within the main, lobar or segmental pulmonary arteries. Airways are patent. No consolidation or pneumothorax. No suspicious lung nodules are identified. No pleural effusion or thickening. Liver, spleen, pancreas, gallbladder and adrenals are unremarkable. Kidneys demonstrate symmetric enhancement. No perinephric patient or hydronephrosis. No renal or ureteral ureteral calculi are identified. Bladder is decompressed not well evaluated. Uterus is not enlarged. No abnormal adnexal mass. Large and small bowel are unremarkable. Appendix is normal. No free intra-abdominal air or fluid. No obstruction. Abdominal aorta has a normal course and caliber. Abdominal vasculature is patent. No enlarged abdominal lymph nodes are identified. No suspicious osseous lesions or acute fractures. IMPRESSION: 1. No pulmonary embolus identified within the main, lobar or segmental. 2. No acute process identified in the abdomen or pelvis. Exposure: One or more of the following in the visualized dose reduction techniques were utilized for this examination: 1. Automated exposure control 2. Adjustment of the MA and/or KV according to patient size 3. Use of iterative of reconstructive technique Electronically signed by: Claire Cavanaugh MD (04/17/2019 7:10 PM) [id number]
[2019-04-17] MEDS ORDERED: ONDA4TAB12 PO (19:19)
== END 2019-04-17 19:25 | disposition home or self-care (01) ==
LOC: ER 13:22
DX: B34.9 Viral infection, unspecified (principal); R11.2 Nausea with vomiting, unspecified; R19.7 Diarrhea, unspecified; R10.9 Unspecified abdominal pain; R14.0 Abdominal distension (gaseous); J45.909 Unspecified asthma, uncomplicated; F17.200 Nicotine dependence, unspecified, uncomplicated; Z91.018 Allergy to other foods; Z88.6 Allergy status to analgesic agent
CPT/HCPCS: 36415; 71275; 74177; 80053; 81001; 81025; 83735; 84702; 85025; 85379; 85610; 85730; 87804; 96361; 96374; 96375; 99285; J2270; J2405; J7030; Q9967

== ENCOUNTER 2020-07-27 08:34 | Emergency (ER) | payer MEDICAID ==
[~2020-07-27] VITALS: Ht 172.7 cm; Wt 72.0 kg
[~2020-07-27 08:34] MED LIST changes: +ONDA4TAB12 PO
[2020-07-27] MEDS ORDERED: HYDROcodone/APAP 10/325 1 TAB TABLET PO ONE (09:00)
--- NOTE | 2020-07-27 09:00 | ED.ADGEN ---
Past Medical History Past Medical History: Asthma Additional Past Medical Histor: PREECLAMPSIA, ACNE, BACTERIAL VAGINOSIS, RUPTURED OVARIAN CYST Past Surgical History: Tubal ligation Additional Past Surgical Histo: ECTOPIC 2019 Smoking Status: Current Every Day Smoker Alcohol Use: Occasionally Drug Use: None General Adult EDM: Chief Complaint: VAGINAL BLEEDING HPI: HPI: Patient is a 30-year-old female who arrives ambulatory to the emergency department complaining of vaginal bleeding and pelvic pain. Patient reports she is now on her second day of her symptoms whereby she is experiencing very heavy bleeding. Patient has a reported history of endometriosis and has been told at some point in her future, she may benefit from a hysterectomy. Patient reportedly had symptoms similar to this which proved to be an ectopic previously. Patient has had a tubal ligation and does not desire children. She further denies any vaginal discharge and states she is not at risk for STDs. She states she does have follow-up later this month however given her symptoms and pain, she is unable to wait until that time. She is awake, alert and uncomfortable appearing. Review of Systems: Review of Systems: Constitutional: Denies fever or chills. [] Eyes: Denies change in visual acuity. [] HENT: Denies nasal congestion or sore throat. [] Respiratory: Denies cough or shortness of breath. [] Cardiovascular: Denies chest pain or edema. [] GI: Denies abdominal pain, nausea, vomiting, bloody stools or diarrhea. [] : Reports vaginal bleeding and pelvic pain. Denies dysuria. [] Musculoskeletal: Denies back pain or joint pain. [] Integument: Denies rash. [] Neurologic: Denies headache, focal weakness or sensory changes. [] Endocrine: Denies polyuria or polydipsia. [] Lymphatic: Denies swollen glands. [] Psychiatric: Denies depression or anxiety. [] Current Medications: Current Medications Medications (Trade) Dose Ordered Sig/Allen Start Time Stop Time Status Last Admin Dose Admin Acetaminophen/ Hydrocodone Bitart (Lortab 10/325) 1 tab 1X ONCE 07/27/20 09:00 07/27/20 09:01 DC 07/27/20 09:13 1 TAB Allergies: Allergies: Allergies Coded Allergies Type Severity Reaction Last Updated Verified aspirin Allergy Intermediate RASH 03/25/18 Yes walnut Allergy Unknown 03/25/18 Yes Physical Exam: PE: Constitutional: Uncomfortable appearing. Well developed, well nourished, non- toxic appearance. [] HENT: Normocephalic, atraumatic, bilateral external ears normal, oropharynx moist, no oral exudates, nose normal. [] Eyes: PERRLA, EOMI, conjunctiva normal, no discharge. [] Neck: Normal range of motion, no tenderness, supple, no stridor. [] Cardiovascular:Heart rate regular rhythm, no murmur [] Lungs & Thorax: Bilateral breath sounds clear to auscultation [] Abdomen: Bowel sounds normal, soft, no tenderness, no masses, no pulsatile masses. [] Genitourinary: Deferred Skin: Warm, dry, no erythema, no rash. [] Back: No tenderness, no CVA tenderness. [] Extremities: No tenderness, no cyanosis, no clubbing, ROM intact, no edema. [] Neurologic: Alert and oriented X 3, normal motor function, normal sensory function, no focal deficits noted. [] Psychologic: Affect normal, judgement normal, mood normal. [] Current Patient Data: Labs: Laboratory Tests Test 07/27/20 09:05 07/27/20 09:30 07/27/20 09:36 White Blood Count 7.6 x10^3/uL (4.0-11.0) Red Blood Count 3.89 x10^6/uL (3.50-5.40) Hemoglobin 11.7 g/dL (12.0-15.5) L Hematocrit 34.6 % (36.0-47.0) L Mean Corpuscular Volume 89 fL (79-100) Mean Corpuscular Hemoglobin 30 pg (25-35) Mean Corpuscular Hemoglobin Concent 34 g/dL (31-37) Red Cell Distribution Width 13.8 % (11.5-14.5) Platelet Count 138 x10^3/uL (140-400) L Urine Collection Type Unknown Urine Color Yellow Urine Clarity Clear Urine pH 7.5 (<5.0-8.0) Urine Specific [place] 1.015 (1.000-1.030) Urine Protein Negative mg/dL (NEG-TRACE) Urine Glucose (UA) Negative mg/dL (NEG) Urine Ketones (Stick) Negative mg/dL (NEG) Urine Blood Large (NEG) Urine Nitrite Negative (NEG) Urine Bilirubin Negative (NEG) Urine Urobilinogen Dipstick 0.2 mg/dL (0.2 mg/dL) Urine Leukocyte Esterase Negative (NEG) Urine RBC 20-40 /HPF (0-2) Urine WBC 0 /HPF (0-4) Urine Squamous Epithelial Cells Few /LPF Urine Bacteria 0 /HPF (0-FEW) POC Urine HCG, Qualitative Hcg negative (Negative) Laboratory Tests 07/27/20 09:05 Vital Signs: Vital Signs Date Time Temp Pulse Resp B/P (MAP) Pulse Ox O2 Delivery O2 Flow Rate FiO2 07/27/20 10:20 98.3 70 18 122/71 (88) 100 98.3 07/27/20 09:13 Room Air EKG: EKG: [] Heart Score: C/O Chest Pain: No Risk Factors: Risk Factors: DM, Current or recent (<one month) smoker, HTN, HLP, family history of CAD, obesity. Risk Scores: Score 0 - 3: 2.5% MACE over next 6 weeks - Discharge Home Score 4 - 6: 20.3% MACE over next 6 weeks - Admit for Clinical Observation Score 7 - 10: 72.7% MACE over next 6 weeks - Early Invasive Strategies Radiology/Procedures: Radiology/Procedures: [] Course & Med Decision Making: Course & Med Decision Making Pertinent Labs and Imaging studies reviewed. (See chart for details) The patient remains awake, alert and in no acute distress. I did speak with the patient with respect to the need for regular OB care. Moreover given that she has a history of endometriosis and does not desire further pregnancies, I have made mention that she should likely have control at this time and eventually consider hysterectomy. The patient understands and states she has been told the same thing. Should she have any worsening pain I have advised her to return. I also advised to return should her bleeding not stop. The patient understands and has agreed to do so. She is nontoxic-appearing and stable for discharge. [] Dragon Disclaimer: Dragon Disclaimer: This electronic medical record was generated, in whole or in part, using a voice recognition dictation system. Departure Departure Impression: Primary Impression: Menorrhagia Additional Impressions: History of endometriosis Pelvic pain Disposition: HOME / SELF CARE / HOMELESS Condition: STABLE Referrals: NO PCP (PCP) Patient Instructions: Endometriosis, Menorrhagia Scripts Hydrocodone/Acetaminophen (Hydrocodone-Acetamin 5-325 mg) 1 Each Tablet 1 EACH PO Q6HRS, #12 TAB Prov: MARIEL RIGGS DO 07/27/20 Problem Qualifiers MARIEL RIGGS DO Jul 27, 2020 08:59
[2020-07-27 09:23] LABS: HEMATOCRIT 34.6 % (36.0-47.0); HEMOGLOBIN 11.7 g/dL (12.0-15.5); RED BLOOD COUNT 3.89 x10^6/uL (3.50-5.40); RED CELL DISTRIBUTION WIDTH 13.8 % (11.5-14.5); WHITE BLOOD COUNT 7.6 x10^3/uL (4.0-11.0)
[2020-07-27 09:53] LABS: BILIRUBIN,URINE NEGATIVE (NEG); CLARITY,URINE CLEAR; COLOR,URINE YELLOW; NITRITE,URINE NEGATIVE (NEG); PH,URINE 7.5 (<5.0-8.0); PROTEIN,URINE NEGATIVE (NEG-TRACE); UROBILINOGEN,URINE 0.2 mg/dL (0.2 mg/dL)
[2020-07-27] MEDS ORDERED: HYDR-2759 PO (09:55)
[2020-07-27 10:07] LABS: BACTERIA,URINE 0 /HPF (0-FEW); RBC,URINE 20-40 /HPF (0-2); WBC,URINE 0 /HPF (0-4)
[2020-07-27 10:20] VITALS: BP 122/71
== END 2020-07-27 10:35 | disposition home or self-care (01) ==
LOC: ER 08:34
DX: N92.0 Excessive and frequent menstruation with regular cycle (principal); R10.2 Pelvic and perineal pain; J45.909 Unspecified asthma, uncomplicated; F17.200 Nicotine dependence, unspecified, uncomplicated; Z98.51 Tubal ligation status; Z88.6 Allergy status to analgesic agent; Z91.018 Allergy to other foods
CPT/HCPCS: 36415; 81001; 81025; 85027; 87491; 87591; 99283